=== PATIENT | female | born 1975 | race Caucasian/White ===

== ENCOUNTER 2025-01-31 08:44 | Outpatient (REF) | payer OTHER, SELFPAY ==
--- NOTE | ~2025-01-31 | XR_ITS ---
EXAMINATION: XR BILATERAL HIPS WITH AP PELVIS CLINICAL INFORMATION: M54.50 - Low back pain, unspecified COMPARISON: None available. TECHNIQUE: AP pelvis. AP and oblique views both hips. FINDINGS: No acute cortical disruption or malalignment. No lytic or blastic lesions. Mild sclerosis along the articular surface of the acetabulum. There is mild asymmetric joint space narrowing on the right side, right normal joint space in the left hip. Degenerative changes in the symphysis pubis. T-shaped contraceptive device overlapping the left lower sacrum. XR/XR hip BI w PEL1V IMPRESSION: Mild osteoarthrosis/osteoarthritis, both hips. EXAMINATION: XR LUMBOSACRAL SPINE WITH OBLIQUES CLINICAL INFORMATION: M54.50 - Low back pain, unspecified COMPARISON: None available. TECHNIQUE: AP and oblique views. Lateral views. FINDINGS: Marginal osteophyte formation and endplate sclerosis and decreased intervertebral disc height at L2-3. No acute cortical disruption or malalignment. Mild S-shaped curvature of the lower lumbar spine. No lytic or blastic lesions. Vascular clips right upper quadrant abdomen likely prior cholecystectomy. Sutures in the right lower abdomen probably related to appendectomy. T-shaped contraceptive device overlapping the left lower sacrum. IMPRESSION: Multilevel spondylosis pronounced at L2-3. Electronically signed by: Patrick Wallace MD 01/31/2025 10:24 AM EDT
--- NOTE | ~2025-01-31 | XR_ITS ---
EXAMINATION: XR BILATERAL HIPS WITH AP PELVIS CLINICAL INFORMATION: M54.50 - Low back pain, unspecified COMPARISON: None available. TECHNIQUE: AP pelvis. AP and oblique views both hips. FINDINGS: No acute cortical disruption or malalignment. No lytic or blastic lesions. Mild sclerosis along the articular surface of the acetabulum. There is mild asymmetric joint space narrowing on the right side, right normal joint space in the left hip. Degenerative changes in the symphysis pubis. T-shaped contraceptive device overlapping the left lower sacrum. XR/XR lumbar spine 4V min IMPRESSION: Mild osteoarthrosis/osteoarthritis, both hips. EXAMINATION: XR LUMBOSACRAL SPINE WITH OBLIQUES CLINICAL INFORMATION: M54.50 - Low back pain, unspecified COMPARISON: None available. TECHNIQUE: AP and oblique views. Lateral views. FINDINGS: Marginal osteophyte formation and endplate sclerosis and decreased intervertebral disc height at L2-3. No acute cortical disruption or malalignment. Mild S-shaped curvature of the lower lumbar spine. No lytic or blastic lesions. Vascular clips right upper quadrant abdomen likely prior cholecystectomy. Sutures in the right lower abdomen probably related to appendectomy. T-shaped contraceptive device overlapping the left lower sacrum. IMPRESSION: Multilevel spondylosis pronounced at L2-3. Electronically signed by: Patrick Wallace MD 01/31/2025 10:24 AM EDT
--- NOTE | ~2025-01-31 | XR_ITS ---
EXAMINATION: XR SHOULDER 2 OR MORE VIEWS RIGHT HISTORY: M25.511 - Pain in right shoulder COMPARISON: There are no prior studies available for comparison. FINDINGS: Four views of the right shoulder are submitted. Osseous mineralization is normal. There is no fracture or dislocation. The glenohumeral and acromioclavicular joint spaces are preserved. The soft tissues are unremarkable. XR/XR shoulder RT min 2V IMPRESSION: Unremarkable examination of the right shoulder. Electronically signed by: Shon Barreto MD 01/31/2025 10:20 AM EDT
== END 2025-01-31 08:45 | disposition home or self-care (01) ==
LOC: HO.XRAY 08:44
PROVIDERS: PCP Family Medicine; Referring Provider Family Medicine; Visit Provider Nurse Practitioner Family
DX: G89.29 Other chronic pain (principal); M54.50 Low back pain, unspecified; M47.817 Spondylosis without myelopathy or radiculopathy, lumbosacral region; M25.551 Pain in right hip; M25.552 Pain in left hip; M25.511 Pain in right shoulder; M16.11 Unilateral primary osteoarthritis, right hip
CPT/HCPCS: 72110; 73030; 73521

== ENCOUNTER 2025-01-31 08:44 | Outpatient (AMB) | payer OTHER, SELFPAY ==
--- NOTE | 2025-01-31 08:54 | MHC.OFFVIS ---
Vital Signs 01/31/25 09:01 Height 5 ft 6 in Weight 177 lb BMI 28.6 BP 151/81 H Blood Pressure Location Rt brachial Position Sitting Pulse 75 Pulse Source Pulse Oximeter Pulse Oximetry (%) 99 Intake Visit Reasons: Acute Pain of Right Shoulder Intake Note: Pain today 10/18 Box Feeder Required: No Accompanied by: Self / Same As Patient Allergies hydromorphone (From Dilaudid) Allergy (Unknown, Verified 01/31/25 09:00) Rash HPI Comments Details: The patient is a 49-year-old female presenting with chronic low back pain and acute on chronic right shoulder pain. The right shoulder pain has been present for approximately six years and has recently worsened. The pain is described as sharp, boring, tender, and hot with movements, and it is exacerbated by weather changes and physical activity. The patient attributes her shoulder pain to rheumatoid arthritis and rotator cuff issues. She has undergone physical therapy in the past with partial improvement and has received cortisone injections that provided brief relief. She has also tried chiropractic manipulation, massage therapy, and TENS unit with minimal relief. The patient also reports chronic low back and hip pain, which she rates as 8/10 in severity and more severe than right shoulder pain. The pain is described as throbbing, pounding, pulsing, shooting, flashing, stabbing, sharp, tingling, burning, tugging, pulling, pinching, cramping, sore, hurting, and aching. It radiates from the lower back to the right buttock, lateral hip, groin, and down the side of the right leg, impacting the knee but not below. The patient has a history of Crohn's disease and has a stoma. She smokes half a pack of cigarettes a day, uses alcohol about three times a month, and consumes marijuana edibles twice a month. She is currently taking oxycodone 10 mg every 4 hours as needed for pain management prescribed by her PCP. The patient has a history of depression and sees her PCP for management. She has experienced significant life stressors, including the recent loss of her and twin grandbaby. - Onset: Chronic low back pain and right shoulder pain present for 6 years, recently exacerbated - Quality: Throbbing, pounding, pulsing, shooting, flashing, stabbing, sharp, tingling, burning, tugging, pulling, pinching, cramping, sore and hurting - Location: Right shoulder, back pain radiating to right buttock, lateral hip, groin, and side of right leg - Exacerbating factors: Movement, weather changes, prolonged sitting or standing, walking - Relieving factors: Pressure, gentle stretching, oxycodone, heat - Interference: Affects daily activities, functioning, and sleep - Affect: Pain impacts daily activities and sleep, contributing to depression - Analgesia: Oxycodone 10 mg every 4 hours as needed, pain rated 7/10 in shoulder, 8/10 in back and hips - Adverse Effects: None reported - Activities of Daily Living: Pain affects work and daily functioning, patient works three jobs and remains active - Aberrant Drug Related Behaviors: None reported [facility] Medical History (Updated 01/31/25 @ 12:43 by LCAIRE Pressley) Chronic pain Crohn's disease Hernia due to colostomy Perimenopausal Rheumatoid arthritis Back pain Social History Alcohol intake: current Alcohol intake frequency: a few times a month Patient Tobacco Use Status: Current everyday Tobacco user Tobacco use type: Cigarette Cigarette Packs Per Day: 1 Substance Use Type: Other Review of Systems Const Details: - Musculoskeletal: Reports right shoulder pain, chronic low back and hip pain - Neurological: Reports numbness in toes, denies radiating pain below knee level - Gastrointestinal: Reports history of Crohn's disease, presence of stoma - Psychiatric: Reports depression, significant life stressors All systems reviewed & are unremarkable except as noted in HPI and below Physical Exam Vital Signs: Last Vital Signs Pulse 75 01/31/25 09:01 BP 151/81 H 01/31/25 09:01 Pulse Ox 99 01/31/25 09:01 BMI result Body Mass Index 28.6 General: Appears afebrile. Alert and oriented. Mood and affect appropriate. Follows and participates in conversation appropriately. Respiratory effort is unlabored. No cough. Able to transition from sit to stand unassisted. Ambulates with bilaterally normal heel strike and toe off, increased low back pain standing on heels, R>L GI Inspection: Yes other (Colostomy present) Palpation (GI): Soft to palpation, nontender and no guarding General: Yes no CVA tenderness Back/Spine/Pelvis Other: Limited lumbar ROM due to pain. Lumbar extension than axial rotations reproduce moderate pain. Lumbar flexion and bending forward reproduces [id number] pain. Positive painful facet loading bilaterally, right worse than the left. No midline TTP in cervical, thoracic or lumbar spine. Demonstrates 5/5 strength of quadriceps bilaterally as well as flexion/dorsiflexion of bilateral feet against resistance. 2+ pedal pulses bilaterally. Straight leg rise with dorsiflexion negative bilaterally. +2 left +1 right patellar and achilles reflexes bilaterally. Celeste sign, Ankit?s, Gaenslen, Pelvic compression and Stinchfield tests are positive on the right. Mild right groin pain with I/E hip rotations on the right. Mild to moderate TTP bilateral GTB. Valsalva maneuver negative. Back: no CVA tenderness Cervical Spine: cervical ROM normal, cervical muscular tenderness, No Cervical spine scars present and No Cervical spine tenderness Thoracic/Lumbar Spine: thoracic and lumbar spine normal to inspection, No Thoracic/lumbar spine scar(s), Lasegue's sign negative, straight leg raise negative bilaterally, pain with thoraco-lumbar ROM, thoraco-lumbar ROM limited, No thoracic spinal tenderness and No lumbar spinal tenderness Sacroiliac joints: on the right tender to palpation and on the left nontender Extrem General: Yes capillary refill normal, Yes no clubbing, cyanosis or edema and Yes no calf tenderness Results Reviewed Results Reviewed: XR BILATERAL HIPS WITH AP PELVIS 01/31/25 CLINICAL INFORMATION: M54.50 - Low back pain, unspecified COMPARISON: None available. TECHNIQUE: AP pelvis. AP and oblique views both hips. FINDINGS: No acute cortical disruption or malalignment. No lytic or blastic lesions. Mild sclerosis along the articular surface of the acetabulum. There is mild asymmetric joint space narrowing on the right side, right normal joint space in the left hip. Degenerative changes in the symphysis pubis. T-shaped contraceptive device overlapping the left lower sacrum. IMPRESSION: Mild osteoarthrosis/osteoarthritis, both hips. XR LUMBOSACRAL SPINE WITH OBLIQUES CLINICAL INFORMATION: M54.50 - Low back pain, unspecified COMPARISON: None available. TECHNIQUE: AP and oblique views. Lateral views. FINDINGS: Marginal osteophyte formation and endplate sclerosis and decreased intervertebral disc height at L2-3. No acute cortical disruption or malalignment. Mild S-shaped curvature of the lower lumbar spine. No lytic or blastic lesions. Vascular clips right upper quadrant abdomen likely prior cholecystectomy. Sutures in the right lower abdomen probably related to appendectomy. T-shaped contraceptive device overlapping the left lower sacrum. IMPRESSION: Multilevel spondylosis pronounced at L2-3. ADDENDUM #1 There is a round radiopaque structure in the left lower abdomen and overlapping the left iliac crest concerning for an ostomy. XR SHOULDER 2 OR MORE VIEWS RIGHT 01/31/25 HISTORY: M25.511 - Pain in right shoulder COMPARISON: There are no prior studies available for comparison. FINDINGS: Four views of the right shoulder are submitted. Osseous mineralization is normal. There is no fracture or dislocation. The glenohumeral and acromioclavicular joint spaces are preserved. The soft tissues are unremarkable. IMPRESSION: Unremarkable examination of the right shoulder. Assessment & Plan Assessment & Plan (1) Bilateral hip pain: Code(s): M25.551 - Pain in right hip; M25.552 - Pain in left hip Category: Medical (2) Chronic low back pain: Code(s): M54.50 - Low back pain, unspecified; G89.29 - Other chronic pain Category: Medical (3) Lumbosacral spondylosis: Code(s): M47.817 - Spondylosis without myelopathy or radiculopathy, lumbosacral region Category: Medical (4) Right shoulder pain: Code(s): M25.511 - Pain in right shoulder Category: Medical (5) Osteoarthritis of right hip: Code(s): M16.11 - Unilateral primary osteoarthritis, right hip Category: Medical Plan The plan includes addressing the patient's chronic pain through a combination of interventions and lifestyle modifications. Given the history of rheumatoid arthritis, spine and joint arthritis and rotator cuff issues, further imaging studies such as x-rays are recommended to assess the extent of joint involvement and guide treatment. Xray studies were completed after today's visit and patient was called with results. Physical therapy was previously attempted it with limited success. For pain management, options such as therapeutic SI joint and hip injections, radiofrequency ablation and peripheral nerve stimulation are discussed as potential treatments to provide longer-term relief. We also discussed longer term neuromodulation such as ITDD trial vs implant, which will require cessation of opioids 24 hours for trial and 60 days for implant. Lifestyle modifications, including avoiding pro-inflammatory foods, are recommended to help manage symptoms of Crohn's disease and arthritis. Schedule Bilateral Diagnostic L2-L3-L4 MBB with local and fluoroscopy for potential Sprint PNS trial for axial low back pain. Expectations, risks and benefits were reviewed. Patient is aware she will be contacted to schedule this procedure. All questions and concerns have been answered and patient agreed with the treatment plan. Follow up after injections and sooner as needed. Patient was informed and verbally consented to the use of an ambient scribe for clinic note documentation during this visit. Orders: Orders XR lumbar spine 4V min Today G89.29 - Other chronic pain, M47.817 - Spondylosis without myelopathy or radiculopathy, lumbosacral region, M54.50 - Low back pain, unspecified XR hip BI w PEL1V Today M25.551 - Pain in right hip, M25.552 - Pain in left hip XR shoulder RT min 2V Today M25.511 - Pain in right shoulder Coding Level of Care Code New Pt Level 4 (06862) Diagnoses Bilateral hip pain M25.551; M25.552 Chronic low back pain M54.50; G89.29 Lumbosacral spondylosis M47.817 Right shoulder pain M25.511 Osteoarthritis of right hip M16.11
[2025-01-31 09:01] VITALS: BP 151/81; PULSE 75; O2SAT 99; BMI 28.6
--- OUTSIDE RECORDS SUMMARY | 2025-01-31 09:24 | XMS_ITS | Encounter Summary ---
Author Organization [facility] Address [address] [place] [address] Phone Care Team Providers Care Assistant Toddler Teacher Name Role Phone Shon Bauer MD Unavailable [phone] Zena Hill DO Unavailable [phone] Vidhya Casey MD Unavailable [phone] Ayaan Bauer MD Unavailable [phone] Juan Carlos Cano MD Primary Care Provider [phone] Encounter Details Date Type Department Care Team (Late st Contact Info) Description 04/05/2023 Procedure Pass [facility] Admitting Dept Virtual Department [address] [place] [address] Social History Tobacco Use Types Packs/Day Years Used Date Smoking Tobacco: Every Day Cigarettes 0.5 25 Smokeless Tobacco: Never Comments:10 cig daily Alcohol Use Standard Drinks/Week Comments Not Currently 0 (1 standard drink = 0.6 oz pur e alcohol) Child or Family Care Answer Date Record ed Do you have problems with on e of the following making it difficult for you to work, study, or receive health care? No 08/29/2020 Education Answer Date Recorded Are you interested in more education? Not on umer e 09/01/2022 Are you concerned about learning? Not on file 09/01/2022 No 09/01/2022 No 09/01/2022 Food Answer Date Recorded Within the past 6 months we worried whether our food would run out before we got money to buy more. Never True 08/29/2020 Within the past 6 months the food we bought just didn't last and we didn't have enough money to get more. Never True Paying for Meds Answer Date Recorded Do you have trouble paying for medicines? No 08/29/2020 Paying Utility Bills Answer Date Record ed Do you have trouble paying your heating or elect ricity bill? No 08/29/2020 Transportation Answer Date Recorded Has the lack of transportati on kept you from medical appointments or from getting medications? No 08/29/2020 Unemployment Answer Date Recorded Are you currently unemployed or working on a part-time or temporary basis, and looking for work? No 08/29/2020 Digital Access Answer Date Recorded No 09/01/2022 No 09/01/2022 Reliable internet access at home? Not on file 09/01/2022 Device with a working camera? Not on file Comments No Sex and Gender Information Value Date Recorded Sex Assigned at Female 07/04/2021 9:02 PM EDT Legal Sex Female 8:11 PM EST Gender Identity Female 07/04/2021 9:02 PM EDT Sexual Orientation Not on file documented as of this encounter Plan of Treatment Upcoming Encounters Date Type Department Care Team (Late st Contact Info) Description 08/27/2024 Procedure Pass [address] [place] [address] 02/26/2025 10:00 AM EST Office Visit [address] [address] Juan Carlos Cano MD [address] [place] [address] [place] [address] 03/04/2025 7:30 AM EST Appointment [address] [place] [address] Juan Carlos Cano MD [address] [place] [address] [place] [address] 03/15/2025 1:30 PM EST Infusion [facility] [address] [place] [address] Momo Lemon MD [address] [address] [email or web address] 05/10/2025 1:30 PM EST Infusion [facility]fusion [address] [address] Momo Lemon MD [address] [address] 07/05/2025 1:30 PM EDT Infusion [facility] [address] [address] Momo Lemon MD [address] [place] [address] [email or web address] documented as of this encounter Visit Diagnoses Not on filedocumented in this encounter Additional Health Concerns Infection Onset Date Last Indicated Resolved Time CoV-Exposed Comment:Recent close contact documented in the Travel/Symptom Screening Form 03/25/2023 03/31/2023 04/05/2023 1:[address] Assessment Noted Time PHQ-2 Depression Total Score: 1 07/28/19 8:52 AM EDT documented as of this encounter Care Teams Assistant Toddler Teacher Relationship Specialty Start Date End Date Juan Carlos Cano MD [address] [place] [address] 7 [place] [address] [email or web address] PCP - General Family Medicine 11/12/22 Shon Bauer MD [address] [place], [place] [address] [address] [email or web address] Historical LMR Provider 01/29/17 Zena Hill DO [address] [place] [address] [address] [place] [address] [email or web address] Historical LMR Provider 01/29/17 Vidhya Casey MD [address] [place] [address] [address] [place] [address] [email or web address] Historical LMR Provider 01/29/17 Ayaan Bauer MD [address] [place] [address] [address] [place] [id number] [email or web address] Historical LMR Provider 01/29/17 documented as of this encounter Additional Source Comments The information contained in this document represents components of the legal health record. It is not the complete legal health record.[facility]
--- OUTSIDE RECORDS SUMMARY | 2025-01-31 09:25 | XMS_ITS | Encounter Summary ---
Author Organization [facility] Address [address] [place] [address] Phone Care Team Providers Care Mutton Puncher Name Role Phone Shon Bauer MD Unavailable [phone] Zena iHll DO Unavailable [phone] Vidhya Casey MD Unavailable [phone] Ayaan Bauer MD Unavailable [phone] Shon Bauer MD Primary Care Provider Juan Carlos Cano MD Primary Care Provider [phone] Juan Carlos Cano MD Primary Care Provider [phone] Encounter Details Date Type Department Care Team (Late st Contact Info) Description 07/04/2021 Procedure Pass [facility] Scan - [address] [address] Social History Tobacco Use Types Packs/Day Years Used Date Smoking Tobacco: Every Day Cigarettes Smokeless Tobacco: Never Comments:5 gabrielle Alcohol Use Standard Drinks/Week Comments Not Currently 0 (1 standard drink = 0.6 oz pur e alcohol) Child or Family Care Answer Date Record ed Do you have problems with on e of the following making it difficult for you to work, study, or receive health care? No 08/29/2020 Education Answer Date Recorded Are you interested in help w ith more adult education (for example, completing high school, GED, job training, learning the [place] language, technical skills, or developing parenting skills)? No 08/29/2020 Food Answer Date Recorded Within the past [...] basis, and looking for work? No 08/29/2020 Comments No Sex and Gender Information Value Date Recorded Sex Assigned at Female 07/04/2021 9:02 PM EDT Legal Sex Female 8:11 PM EST Gender Identity Female 07/04/2021 9:02 PM EDT Sexual Orientation Not on file documented as of this encounter Functional Status * Calculated C-SSRS Risk Score (Lifetime/Recent) Answer Date of Assessment Author No Risk Indicated 07/04/2021 9:01 PM EDT Myla Campa CNP * [place] Suicide Severity Rating Scale (Screener/Recent Self-Report) Question Answer Date of Assessment Author 1. Wish to be (Past 1 Month) No 07/04/2021 9:01 PM EDT Myla Campa CNP 2. Non-Specific Active Suicidal Thoughts (Past 1 Month) No 07/04/2021 9:01 PM EDT Myla Campa CNP 6. Suicidal Behavior (Lifetime) No 07/04/2021 9:01 PM EDT Myla Campa CNP documented as of this encounter Plan of Treatment Upcoming Encounters Date Type Department Care Team (Late st Contact Info) Description 08/27/2024 Procedure Pass [facility] - [address] [place] [address] 02/26/2025 10:00 AM EST [facility] [address] [facility] [address] Juan Carlos Cano MD [address] [facility], [address] [place] [address] 03/04/2025 7:30 AM EST Appointment [address] [place] [address] Juan Carlos Cano MD [address] [facility], [facility] [address] [place] [address] 03/15/2025 1:30 PM EST Infusion [facility] [address] [address] Momo [place] MD [address] [place] [address] 05/10/2025 1:30 PM EST Infusion [facility] [address] [address] Momo Lemon MD [address] [place] [address] 07/05/2025 1:30 PM EDT Infusion [facility] [address] [address] Momo Lemon MD [address] [place] [address] documented as of this encounter Visit Diagnoses Not on filedocumented in this encounter Additional Health Concerns Infection Onset Date Last Indicated Resolved Time CoV-Exposed Comment:Recent close contact documented in the Travel/Symptom Screening Form 03/25/2023 03/31/2023 04/05/2023 1:[address] documented as of this encounter Care Teams Mutton Puncher Relationship Specialty Start Date End Date Shon Bauer MD [address] [place] [address] [address] [place] [phone] [email or web address] PCP - General 02/15/17 04/18/22 Juan Carlos Cano MD [address] [place] [address], [address] [place] [address] [email or web address] PCP - General Family Medicine 04/19/22 11/11/22 Juan Carlos Cano MD [address] [place] [address], [address] [place] [address] [email or web address] PCP - General Family Medicine 11/12/22 Shon Bauer MD [address] [place] [address] [address] [place] [phone] [email or web address] Historical LMR Provider 01/29/17 Zena Hill DO [address] [place] [address], [facility] [address] [place] [address] [email or web address] Historical LMR Provider 01/29/17 Vidhya Casey MD [address] [place] [address], [address] [place] [address] [email or web address] Historical LMR Provider 01/29/17 Ayaan Bauer MD [address] [place] [address] [address] [place] [phone] [email or web address] Historical LMR Provider 01/29/17 documented as of this encounter Additional Source Comments The information contained in this document represents components of the legal health record. It is not the complete legal health record.[facility]
--- OUTSIDE RECORDS SUMMARY | 2025-01-31 09:25 | XMS_ITS | Clinical Summary ---
Author Organization [facility] Address [address] [facility] [address] [place] [phone] Phone Care Team Providers Care Order Entry Technician Name Role Phone Shon Bauer MD Unavailable Zena Hill DO Unavailable [phone] Vidhya Casey MD Unavailable [phone] Ayaan Bauer MD Unavailable [phone] Juan Carlos Cano MD Primary Care Provider Allergies Active Allergy Reactions Criticality Noted Date Comments Hydromorphone 06/11/2021 Other reaction(s): itching Hydromorphone (Bulk) Itching,Swelling 7 Kiwi (Actinidia Chinensis) 03/25/2017 Latex 06/11/2021 Other reaction(s): RASH Latex, Natural Rubber Itching,Swelling 03/25/20 17 Metronidazole 06/11/2021 Other reaction(s): swelling feet and ankles itching Pineapple Swelling,Throat Tightness Medium 03/11/2021 Medications cyanocobalamin (VIT B-12) 1000 MCG tabletIndicatio ns:prevention of vitamin B12 deficiency Take 100 mcg by mouth daily. Indications: Prevention of Vitamin B12 Deficiency Active cholecalciferol (VITAMIN D3) 1,000 unit tabletIndicatio ns:osteoporosis Take 1,000 Units by mouth daily. Indications: Osteoporosis Active potassium chloride (MICRO-K) 8 mEq CR capsule Take 8 mEq by mouth daily. Active simethicone 125 mg Cap Take 125 mg by mouth daily. Active biotin 1 mg tablet Take 1,000 mcg by mouth daily. Active mercaptopurine (PURINETHOL) 50 mg tablet Take 150 mg by mouth daily. 2 01/06/20 18 Active cetirizine (ZYRTEC) 10 MG tablet Take 10 mg by mouth 2 (two) times a day. Active ENTYVIO 300 mg SolR injection Inject into the vein once every 8 weeks. 12/05/19 21 Active montelukast (SINGULAIR) 10 mg tablet Take 10 mg by mouth nightly at bedtime. 08/23/19 22 Active famotidine (PEPCID) 20 MG tabletIndicatio ns:Crohn's disease 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 Take 1 tablet (20 mg total) by mouth 2 (two) times a day. Take 20 mg by mouth 2 (two) times a day. 180 tablet 3 01/15/20 23 Active XOLAIR 300 mg/2 mL AtIn 10/10/19 24 Active EPINEPHrine 0.3 mg/0.3 mL auto-injector INJECT CONTENTS OF 1 PEN NEEDED FOR ALLERGIC REACTION THEN CALL 911 08/12/19 24 Active traZODone (DESYREL) 100 MG tabletIndicatio ns:Primary insomnia Take 1 tablet (100 mg total) by mouth nightly at bedtime. 30 tablet 5 06/04/19 25 Active albuterol 90 mcg/actuation inhalerIndicati ons:Shortness of breath Inhale 2 puffs into the lungs every 6 (six) hours as needed for wheezing or shortness of breath/dyspnea. 18 g 3 08/22/19 25 Active DULoxetine (CYMBALTA) 60 MG capsuleIndicati ons:Rheumatoid arthritis, involving unspecified site, unspecified whether rheumatoid factor present,Depress ion with anxiety Take 1 capsule (60 mg total) by mouth 2 (two) times a day. 180 capsule 3 10/20/19 25 Active oxyCODONE HCl 10 mg TabIndications: Rheumatoid arthritis, involving unspecified site, unspecified whether rheumatoid factor present Take 1 tablet (10 mg total) by mouth every 4 (four) hours as needed (pain in joints). Max 5 tablets/24 hours. No more than 140 tablets in 28 days. 140 tablet 01/11/20 25 025 Active oxyCODONE HCl 10 mg TabIndications: Rheumatoid arthritis, involving unspecified site, unspecified whether rheumatoid factor present Take 1 tablet (10 mg total) by mouth every 4 (four) hours as needed (pain in joints). Max 5 tablets/24 hours. No more than 140 tablets in 28 days. 140 tablet 12/14/19 25 025 Discontin ued([facility]) Hospital, Clinic, or Other Facility Administered Medication Ordered Dose Route Frequency Start Date End Date Status levonorgestreL (MIRENA) 20 mcg/24 hours (6 yrs) 52 mg intrauterine device 1 each 1 each Utrn Every 5 years 09/29/2020 Active Active Problems Problem Noted Date Diagnosed Date Ventral hernia without obstruction or gangrene 0 08/28/2024 Primary insomnia 08/29/2023 Assessment & Plan (08/29/2023 5:40 AM EDT): I will start the patient on trazodone 50 mg daily to see if that helps her get some sleep. Depression with anxiety 08/29/2023 Assessment & Plan (01/30/2024 12:19 PM EDT): Byron presents for follow-up regarding depression and anxiety. Her recently . She also notes that she lost to twin grandchildren recently. She has been going through a lot recently. She feels well supported. She does have the supports in place. She stopped taking the gabapentin as she notes that it makes her feel strange. She would like to stay motivated and this medication makes her unmotivated. Her vital signs are stable. She denies any SI or HI. I gave support. I informed her to follow-up with PCP in 3 to 4 weeks. I informed her to call earlier if needed. She understands and agrees with this plan of action. Assessment & Plan (08/29/2023 5:41 AM EDT): Patient is complaining of increased pain along with depression and anxiety due to her home situation. I will be adjusting current dose of Cymbalta to see if it will help with both her depression and pain symptoms. Other chronic pain 01/14/2023 Assessment & Plan (04/18/2023 10:16 AM EST): Patient is managing her pain with oxycodone 10 mg tablets of which she is taking 5 pills a day. There are days where she does not need to take all 5 pills throughout the day but there are other days when she has been doing physical work where she may need to take more. Patient has not needed to fill the prescription early which is encouraging as her pain was not well-controlled in the past. Assessment & Plan (03/21/2023 1:36 AM EST): Patient has been taking oxycodone for chronic pain. I will increase the medication from 4 tablets a day to 5 tablets a day. I will recheck with her in 3 months to see how the new dose is doing. COVID-19 virus infection 05/06/2022 Assessment & Plan (05/06/2022 2:24 PM EST): Virtual Visit Attestation Modality: video Provider Location: practice location Patient Location: home Patient State: [place] tested positive for COVID this past Tuesday. She has mild to moderate symptoms- she is a candidate for paxlovid. She is interested in the medication for treatment thus I prescribed this today-I reviewed side effects. I also gave guidance regarding symptomatic management and to call if things get worse or if there are any other issues or concerns. I gave guidance regarding quarantining. She understands and agrees. Food allergy 03/13/2021 Assessment & Plan (03/13/2021 10:35 AM EST): It does seem that she is reacting at least two pineapple but she thinks other foods may be involved. Referral to allergy. Pelvic pain 2021 Overview (2021): X 2 weeks, alternating between RLQ and LLQ, Not her typical sxs of Crohn's Assessment & Plan (2021 7:58 PM EST): H/o cysts; may have adhesions related to Crohn's Recommend u/s Rheumatoid arthritis 01/24/2019 Assessment & Plan (08/29/2023 5:39 AM EDT): Patient is being prescribed oxycodone 10 mg tablets that she can take up to 5 a day. Patient states that the medication helps her get through the day especially if she is taking on more responsibilities due to her 's sickness. Assessment & Plan (03/21/2023 1:34 AM EST): Patient has history of rheumatoid arthritis for which she has needed increased amount of pain medication over the past 6 months. I had increased her dose from 3 a day to 4 a day in September of this year. Now it appears the patient has a higher pain requirement so I will increase it to 5 tablets a day with the hopes that it is enough to keep the patient functional as she is taking care of many responsibilities at home. Assessment & Plan (09/20/2022 3:49 PM EDT): Patient asked to decrease the duration of time in between her doses of pain medication. I have changed the directions on the prescription so that she can take 1 tablet every 6 hours rather than every 8 hours as needed for pain. Assessment & Plan (07/27/2022 5:11 PM EDT): Reviewed I would refer her question regarding potentially increasing the oxycodone dosage to her PCP - usually we would not increase by fully 20 mg per day but potentially increase from QID to 5 per day for example, she expressed understanding. Assessment & Plan (05/03/2022 12:56 AM EST): Continue current medications for pain. She is in the process of finding a new chemistry technician Assessment & Plan (09/11/2021 1:36 PM EDT): Byron states that the increase stress has triggered increased pain and she is used more oxycodone. She knows that this is not acceptable but she is out and I do not want her to go into withdrawal. I did agree to try to get this refilled a week early but she will also start Cymbalta starting at 30 mg once a day increasing to 60 mg/day and also referral is sent into pain medicine. She agrees to this. Assessment & Plan (06/17/2021 1:56 PM EST): Shun has a lot of pain and did not feel that the local chemistry technician was able to help. We did review that [facility] may be a reasonable option. She is hoping to get into a GI study through [facility] and will check with the autocad electrical designer about finding a chemistry technician locally there. We did review the oxycodone use. She really does feel that the 5 mg 4 times daily allows her to ambulate and be more productive. She has not changed her dosing in years and really feels this is helpful. Assessment & Plan (03/13/2021 10:34 AM EST): Continue current medications. She is counseled regarding oxycodone use. She has been using this consistently and appropriately for a while. Encouraged to use as little as necessary to maintain function. Colostomy present 01/24/2019 Assessment & Plan (04/18/2023 10:17 AM EST): Patient does have a colostomy present on the left side of her abdomen. She was supposed to have a colonoscopy but was given the incorrect prep for her to have a scope put in the site of the ostomy. She will need to reschedule her colonoscopy but she is complaining of pain along the site due to a hernia located above the ostomy site. She will need to speak to her surgeon regarding future plans as the colostomy was supposed to be temporary. Assessment & Plan (09/20/2022 3:51 PM EDT): Patient has a colostomy present which is patent and draining the contents of her intestines. There is some mild irritation along the ostomy site due to adhesive used for fastening the colostomy bag. No sign of skin breakdown to the point of needing antibiotics at this time. Assessment & Plan (05/03/2022 12:59 AM EST): No concerns with the ostomy at this time. There is no leakage or blood seen coming from the opening. IUD (intrauterine device) in place 01/24/2019 Overview (09/29/2020): Mirena September 2020 Crohn's disease of both smal l and large intestine with fistula 12/21/2017 Assessment & Plan (03/21/2023 1:35 AM EST): Patient has history of Crohn's disease but denies any current complications. She does have a colostomy and reports no complications such as blood with the discharge. Assessment & Plan (05/03/2022 12:57 AM EST): Patient is managing okay with her Crohn's disease. She does have a colostomy and it is working well. She follows up with GI as needed. Assessment & Plan (06/17/2021 1:57 PM EST): She is on Entyvio and although it helps her GI symptoms, she does not have any anti-inflammatory improvement and her RA symptoms are worse. She will try to find a new chemistry technician. Goiter 03/25/2017 Tobacco use 03/25/2017 Assessment & Plan (09/20/2022 3:50 PM EDT): Patient has had a stressful few months and has increased her smoking as a result. Advised patient to try cutting down as much as possible. She is not interested in taking any medications to help her quit at this time. Assessment & Plan (05/03/2022 12:58 AM EST): Patient encouraged to quit smoking or at least cut down as much as possible. She knows that she needs to quit and is working hard to try to cut down is much as possible Assessment & Plan (09/11/2021 1:36 PM EDT): Byron states that increase stress has triggered an uptick in her cigarettes to about a pack per day. She was down to 4 or 5/day. I did encourage trying once again. Assessment & Plan (06/17/2021 1:57 PM EST): Byron is smoking more than she had but still less than 10 cigarettes daily. I once again encouraged complete smoke cessation. Assessment & Plan (03/13/2021 10:35 AM EST): Encouraged to continue working on smoking cessation. It has been 1 week and hopefully it will continue. Assessment & Plan (05/26/2020 8:45 AM EST): On Chantix now. Resolved Problems Problem Noted Date Diagnosed Date Resolved Date Accidental fall 09/29/2017 05/26/2020 Assessment & Plan (09/29/2017 8:39 AM EDT): Byron had an accidental fall this past Tuesday, no head truama or loss of consciousness. She was advised to be careful and to treat her aches and pains with RICE therapy. She understands and agrees. Acute pain of left shoulder 09/29/2017 05/26/2020 Assessment & Plan (09/29/2017 8:34 AM EDT): Byron has left shoulder pain after a recent fall this past Tuesday. She was advised to go for the above image study and I will update her with the results. She was also advised of RICE therapy and to go for physical therapy if there is no issues with the image study. She will call if this does not improve over the next 2-3 weeks. She understands and agrees. Sprain of anterior talofibul ar ligament of left ankle 09/29/2017 05/26/2020 Assessment & Plan (09/29/2017 8:44 AM EDT): Byron has a left ankle sprain and she was advised to continue with her RICE therapy. She will call if this gets worse. Right wrist pain 09/29/2017 05/26/2020 Assessment & Plan (09/29/2017 8:44 AM EDT): Byron has a right wrist sprain and she was advised to continue with her RICE therapy. She will call if this gets worse. Crohn disease 03/25/2017 05/26/2020 Encounters Date Type Department Care Team Description 01/18/2025 1:30 PM EDT Infusion [facility] [address] [place] [id number] Lucia Lemon MD Crohn's disease 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 (Primary Dx) 01/17/[address] [address] Suly Payton RN 12/29/2024 8:04 AM EDT - 12/29/2024 11:59 PM EDT Hospital Encounter [facility] [address] [place] [phone] Juan Carlos Cano MD Discharge Disposition: Home or Self Care 12/28/2024 4:30 PM EDT Office Visit [facility] [address] [place] [address] [place] [phone] Kristy Gastelum MD Encounter for gynecological examination without abnormal finding (Primary Dx); Perimenopause 11/27/2024 10:00 AM EDT Office Visit [address] [address] Juan Carlos Cano MD Other chronic pain (Primary Dx); Screening for condition; Rheumatoid arthritis, involving unspecified site, unspecified whether rheumatoid factor present; Crohn's disease 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; Acute pain of right shoulder; Ventral hernia without obstruction or gangrene 11/23/2024 1:30 PM EDT Infusion [address] [address] Lucia Lemon MD Crohn's disease 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 (Primary Dx) 11/16/2024 Orders Only [address] [address] Lucia Lemon MD 11/16/2024 Orders Only Virtual Department [address] [place] [id number] Lucia Lemon MD Crohn's disease with complication, unspecified gastrointestinal tract location (Primary Dx) from Last 3 Months Immunizations Immunization Administration Dates Next Due COVID-19 (Pre-01/31) Pfizer Vaccine, mRNA, PF 07/29/2020,07/07/2020 INFLUENZA, SPLIT VIRUS, TRIVALENT PF 01/27/2024 INFLUENZA, SPLIT VIRUS, TRIV ALENT W/ PRESERVATIVE IM 06/30/2011 Influenza Quadrivalent Preservative Free IM 11/2023,03/13/2021,01/17/2017 Influenza Quadrivalent w/ Preservative IM 2015,02/26/2015 Influenza Recombinant Cornelius valent Preservative Free IM 01/13/2020,01/24/2019 Influenza, Unspecified Formulation 01/13/2020, Pneumococcal conjugate PCV20 07/27/2022 Pneumococcal polysaccharide PPSV23 01/25/2019,,08/05/2008 Td (adult),2 Lf Tetanus Toxo id, PF, Adsorbed 11/28/2019 Td, unspecified formulation 08/19/2004 Family History Medical History Relation Comments No Known Problems Brother No Known Problems Father No Known Problems Maternal Aunt No Known Problems Maternal Grandfather No Known Problems Maternal Grandmother No Known Problems Maternal Uncle Arthritis Mother Osteoarthritis Mother Ovarian cancer Mother No Known Problems Paternal Aunt No Known Problems Paternal Grandfather Diabetes Paternal Grandmother No Known Problems Paternal Uncle No Known Problems Sister Clotting disorder Neg Hx Collagen disease Neg Hx Depression Neg Hx Dislocations Neg Hx Gout Neg Hx Infl. arthritis Neg Hx Osteoporosis Neg Hx Scoliosis Neg Hx Relation Status Comments Brother Father Maternal Aunt Maternal Grandfather Maternal Grandmother Maternal Uncle Mother Paternal Aunt Paternal Grandfather Paternal Grandmother Paternal Uncle Sister Social History Tobacco Use Types Packs/Day Years Used Date Smoking Tobacco: Every Day Cigarettes 0.5 25 Smokeless Tobacco: Never Tobacco Cessation:Ready to Q uit: Not Asked; Counseling Given: Not Answered Comments:10 cig daily Alcohol Use Standard Drinks/Week [...] with a working camera? Not on file Intimate Partner Violence Answer Date R ecorded Are you denied basic needs s uch as food, clothing, or medical care? No 07/11/2023 In the past 12 months have y ou been in a relationship with a person who hurts, threatens, or tries to control you? No 07/11/2023 Are you denied basic needs s uch as food, clothing, or medical care? No 07/11/2023 In the past 12 months have y ou been in a relationship with a person who hurts, threatens, or tries to control you? No 07/11/2023 Comments No Sex and Gender Information Value Date Recorded Sex Assigned at Female 07/04/2021 9:02 PM EDT Legal Sex Female 8:11 PM EST Gender Identity Female 07/04/2021 9:02 PM EDT Sexual Orientation Not on file Last Filed Vital Signs Vital Sign Reading Time Taken Comments Blood Pressure 122/79 01/18/2025 2:53 PM EDT Pulse 62 01/18/2025 2:00 PM EDT Temperature 36.7 C (98.1 F) 01/18/2025 2:53 PM EDT Respiratory Rate 18 01/18/2025 2:53 PM EDT Oxygen Saturation 98% 01/18/2025 2:53 PM EDT Inhaled Oxygen Concentration - - Weight 81.6 kg (180 lb) 12/28/2024 4:24 PM EDT Height 167.6 cm (5' 5.98 ) 12/28/2024 4:24 PM ED T Body Mass Index 29.07 12/28/2024 4:24 PM EDT Plan of Treatment Upcoming Encounters Date Type Department Care Team (Late st Contact Info) Description 08/27/2024 Procedure Pass [address] [place] [address] 02/26/2025 10:00 AM EST Office Visit [facility] [address] [place] [address] Juan Carlos Cano MD [address] [facility], [address] [place] [address] 03/04/2025 7:30 AM EST Appointment [address] [place] [address] Juan Carlos Cano MD [address] [facility] [address] [place] [address] 03/15/2025 1:30 PM EST Infusion [facility] [address] [place] [phone] Lucia Lemon MD [address] [place] [address] 05/10/2025 1:30 PM EST Infusion [facility] [address] [address] Lucia Lemon MD [address] [place] [phone] 07/05/2025 1:30 PM EDT Infusion [facility] [address] [address] Lucia Lemon MD [address] [place] [phone] [email or web address] Health Maintenance Due Date Last Done Comments COLOGUARD 2022 FIT TEST 2022 FOBT 2022 SIGMOIDOSCOPY 2022 VIRTUAL COLONOSCOPY 2022 MAMMOGRAM 08/17/2024 08/17/2022, 06/16/2020 INFLUENZA VACCINE (#1) 2024 , 04/18/2023, 03/13/2021, Additional history exists COVID-19 VACCINE (2024- season) 2024 03/30/2021, 07/29/2020, 07/07/2020 DEPRESSION SCREENING 05/29/2025 05/29/2024, 05/29/19 25 SMOKING Hx and SMOKELESS TOBACCO SCREENING 12/28/2025 12/28/2024 POTASSIUM LEVEL 12/29/2025 12/29/2024, 05/2021, 07/04/2021, Additional history exists PAP SMEAR 12/29/2027 12/28/2024, 05/12, 09/17/2010 SCREENING FOR DIABETES 12/30/2027 12/29/2024 IUD 09/29/2028 09/29/2020 Adult Td,Tdap Booster 11/27/2029 11/28/2019, 005 LIPID PANEL 12/29/2029 12/29/2024, 11/28/2019 COLONOSCOPY 07/10/2033 07/11/2023, 03/12, 01/24/2018 COLORECTAL CANCER SCREENING 07/10/2033 HEPATITIS C SCREENING Completed 09/30/2020 HIV ONE-TIME SCREENING (18-65 YEARS) Completed 09/30/2020 PNEUMOCOCCAL VACCINES (0-49 years) Completed 07/27/2022, 01/25/2019, 06/30/2011, Additional history exists HEPATITIS A VACCINES Aged Out No long er eligible based on patient's age to complete this topic HIB VACCINES Aged Out No longer eligi ble based on patient's age to complete this topic MENINGOCOCCAL VACCINES (ACWY) Aged Out No longer eligible based on patient's age to complete this topic MENINGOCOCCAL VACCINES (B) Aged Out N o longer eligible based on patient's age to complete this topic Medical Devices Implanted Type Area Gas Engine Operator Device Identifier Shelf Expiration Date Model / Serial / Lot Iud Implanted: (Quantity not on file) Intrauterine Device Procedures Procedure Name Priority Date/Time Associated Diagnosis Comments FSH Routine 12/29/2024 8:19 AM EDT Perimenopause COMPREHENSIVE METABOLIC PANEL Routine 12/29/2024 8:19 AM EDT Screening for condition LIPID PANEL Routine 12/29/2024 8:19 AM EDT Screening for condition CBC AND DIFFERENTIAL Routine 12/29/2024 8:19 AM EDT Screening for condition PAP TEST Routine 12/28/2024 12:00 AM EDT ENDOSCOPY, COLON 07/11/2023 12:3 0 PM EDT BI MAMMOGRAM SCREENING WITH TOMOSYNTHESIS WITH CAD (BILATERAL) Routine 08/17/2022 11:10 AM EDT Encounter for screening mammogram for malignant neoplasm of breast HEPATITIS C ANTIBODY, QUALITATIVE Routine 09/30/2020 10:58 AM EDT Need for hepatitis C screening test from Last 3 Months or Most Recently Relevant to Health Maintenance Results * Comprehensive metabolic panel (12/29/2024 8:19 AM EDT) SODIUM 140 133 - 146 mmol/L [facility] POTASSIUM 4.5 3.3 - 5.1 mmol/L [facility] CHLORIDE 106 96 - 108 mmol/L [facility] CO2 24 21 - 35 mmol/L [facility] BUN 7 6 - 19 mg/dL [facility] CREATININE 0.50 0.5 - 1.5 mg/dL [facility] GLUCOSE 94 70 - 99 mg/dL [facility] ALBUMIN 4.1 3.9 - 4.8 g/dL [facility] TOTAL PROTEIN 7.1 6.5 - 8.0 g/dL [facility] CALCIUM 9.5 8.4 - 10.3 mg/dL [facility] ALKALINE PHOSPHATASE 57 39 - 117 U/L [facility] TOTAL BILIRUBIN 0.4 0.0 - 1.2 mg/dL [facility] AST 12 0 - 37 U/L [facility] ALT 11 0 - 40 U/L [facility] GLOBULIN 3.0 1 - 4.8 g/dL [facility] EGFR 116 >59 mL/min/1.7 3m2 [facility] Comment:Estimated glomerular filtration rate calculated using the CKD-EPI refit equation. ANION GAP 15 10 - 20 mmol/L [facility] Blood 12/29/2024 8:19 AM EDT 12/29/2024 8:22 AM EDT us Juan Carlos Cano MD LAB BLOOD ORDERABLES Final Resul t [facility] [address] [place] [address] * (ABNORMAL) CBC and differential (12/29/2024 8:19 AM EDT) WBC 5.41 4.00 - 11.00 K/uL [facility] RBC 4.35 4.00 - 5.20 M/uL [facility] HGB 13.7 12.0 - 16.0 g/dL [facility] HCT 41.9 36.0 - 46.0 % [facility] PLT 212 150 - 450 K/uL [facility] MCV 96.3 80.0 - 100.0 fL [facility] MCH 31.5(H) 27.0 - 31.0 pg [facility] MCHC 32.7 32.0 - 36.0 g/dL [facility] RDW 13.4 11.5 - 14.5 % [facility] MPV 10.5 8.4 - 12.0 fL [facility] NRBC 0.00 0.00 /100 WBCs [facility] ABSOLUTE NRBC 0.00 0.00 K/uL [facility] DIFF METHOD Auto [facility] NEUTS 64.5 48.0 - 76.0 % [facility] LYMPHS 24.2 18.0 - 41.0 % [facility] MONOS 8.7 4.0 - 11.0 % [facility] EOS 1.8 0.0 - 5.0 % [facility] BASOS 0.4 0.0 - 1.5 % [facility] Granulocytes, immature (%) 0.4 0.0 - 0.9 % [facility] ABSOLUTE NEUTS 3.49 1.92 - 7.60 K/uL [facility] ABSOLUTE LYMPHS 1.31 0.72 - 4.10 K/uL [facility] ABSOLUTE MONOS 0.47 0.16 - 1.10 K/uL [facility] ABSOLUTE EOS 0.10 0.00 - 0.50 K/uL [facility] ABSOLUTE BASOS 0.02 0.00 - 0.15 K/uL [facility] Granulocytes, immature 0.02 0.00 - 0.09 K/uL [facility] Blood 12/29/2024 8:19 AM EDT 12/29/2024 8:22 AM EDT us Juan Carlos Cano MD LAB BLOOD ORDERABLES Final Resul t [address] [address] * FSH (12/29/2024 8:19 AM EDT) FSH 6.4 IU/L [facility] Comment: FEMALE: Follicular: 3.5 - 12.5 mIU/ml. Ovulate: 4.7 - 21.5 mIU/ml. Luteal: 1.7 - 7.7 mIU/ml. Postmenopausal: 25.8 - 134.8 mIU/ml. Blood 12/29/2024 8:19 AM EDT 12/29/2024 8:22 AM EDT us Kristy Gastelum MD LAB BLOOD ORDERABLES Final Re sult [address] [address] * (ABNORMAL) Lipid panel (12/29/2024 8:19 AM EDT) HDL 71 mg/dL [facility] Comment: Interpretation <40 mg/dL: Low HDL cholesterol (major risk factor for CHD) Greater than or equal to 60 mg/dL: High HDL cholesterol ( negative risk factor for CHD) HDL - cholesterol is affected by a number of factors, e.g. smoking, excerise, hormones, sex and age. CHOLESTEROL 137 0 - 240 mg/dL [facility] TRIGLYCERIDES 98 30 - 160 mg/dL [facility] LDL 46(L) 50 - 129 mg/dL [facility] Comment: LDL levels in terms of risk for coronary heart disease: <100 mg/dL: Optimal 100-129 mg/dL: Near or above optimal 130-159 mg/dL: Borderline high 160-189 mg/dL: High >190 mg/dL: Very High CARDIAC RISK RATIO 1.9(L) 3.3 - 4.4 C [facility] Blood 12/29/2024 8:19 AM EDT 12/29/2024 8:23 AM EDT us Juan Carlos Cano MD LAB BLOOD ORDERABLES Final Resul t [address] [address] * Pap Test (12/28/2024 12:00 AM EDT) 12/28/2024 12/30/2024 9:5 0 AM EDT Narrative SEE NARRATIVE - 01/03/2025 3:48 PM EDT [address] [address] Proposal Development Manager: Ayaan Benitez MD FUNDS DEVELOPMENT DIRECTOR Cytology Report FINAL DIAGNOSIS A. PAP SMEAR (THIN PREP) CE: SPECIMEN ADEQUACY: Satisfactory for evaluation; transformation zone present. INTERPRETATION: NEGATIVE FOR INTRAEPITHELIAL LESION OR MALIGNANCY. This specimen was analyzed by the automated ThinPrep Imaging System ([employer].) and the selected dickson were reviewed by a impression printer. Electronically Signed Out By: SHERITA Pineda(ASCP) The Pap test is a screening test primarily for squamous cancers and precursors and has associated false-negative and false-positive results. New technologies such as liquid-based preparations may decrease but will not eliminate all false-negative results. Regular sampling and follow-up of unexplained clinical signs and symptoms are recommended to minimize false negative results. PROCEDURES/ADDENDA HPV Testing (Requested) Ordered Date: 12/30/2024 A. PAP SMEAR (THIN PREP) CE: High-risk HPV Panel w/ extended genotyping NEG HPV 16-NEG HPV 18-NEG HPV 45-NEG HPV 33/58-NEG HPV 31-NEG HPV 56/59/66-NEG HPV 51-NEG HPV 52-NEG HPV 35/39/68-NEG Performed by real-time polymerase chain reaction (PCR) at [facility], [address] [place] [address] using the FDA-approved [employer] Onclarity HPV Assay with extended genotyping. Uses of the assay in scenarios other than those approved by the FDA should be considered off-label use. The accuracy and precision of this test for all other off-label specimen sources has been verified in the Cytopathology Laboratory of the [facility] and has not been cleared or approved by the U.S. Food and Drug Administration. Clinical correlation is advised. The assay assesses the E6/E7 DNA target and utilizes human beta globin as an internal control. Cytology and HPV testing are screening assays and should not be used as the sole means of detecting cancer. False-positives and false-negatives can occur. CLINICAL HISTORY Date of Last Menstrual Period: Not Provided Contraceptive History: IUD Other Clinical Conditions: Screening Pap SPECIMEN SOURCE A: PAP SMEAR (THIN PREP) CE Patient Name: BYRON PERALTA : 1975 (Age: 49) Sex: F Institution: [facility] Location: [facility] Date of Collection: 12/28/2024 Date of Reported: 01/03/2025 15:48 Results to: Kristy Gastelum MD us Kristy Gastelum MD CYTOLOGY ORDERABLES Final Res ult SEE NARRATIVE * ENDOSCOPY, COLON (07/11/2023 12:30 PM EDT) Narrative Transcriptions Lucia Lemon MD - 07/11/2023 12:30 PM EDT [facility] Patient Name: Byron Adrián Attending MD:: LUCIA LEMON MD, Procedure Date: 07/11/2023 12:30 PM Date of : 1975 Age: 48 Admit Type: Outpatient Gender: Female Room: [place] [address] Referring MD: Juan Carlos Cano Exam Type: Colonoscopy Indications: Follow-up of Crohn's disease of the small bowel and colon, Disease activity assessment of Crohn'sdisease of the small bowel and colon, Assess therapeutic response to therapy of Crohn's disease of the small bowel and colon on Entyvio and Mercaptopurine Medications: Monitored Anesthesia Care Procedure: Informed consent was obtained from the patientafter discussion of the indications, limitations, alternatives, benefits, and risks of the procedure. Risks specifically discussed include but are not limited to medication reactions, missed lesions, bleeding, perforation, or the need for emergent surgery. Throughout the procedure, the patient's blood pressure, pulse, end-tidal CO2, and oxygensaturations were monitored continuously. The Olympus pediatric variable colonoscopePCF-[id number] #5 was introduced through the descending colostomyand advanced to the terminal ileum. The colonoscopy was performed without difficulty. The patient tolerated the procedure fairly well. The quality of the bowel preparation was adequate. The terminal ileum was photographed. Complications: No immediate complications. Estimated blood loss: Minimal. Findings: There was evidence of a prior ndx-wx-umsoxwj-colonic anastomosis in the cecum. This was patent and was characterized by healthy appearing mucosa. The anastomosis was traversed. Biopsies were taken witha cold forceps for histology in the neoterminalileum. Normal mucosa was found in the descending colon, at the splenic flexure, in the transverse colon and in the ascending colon. One biopsy was taken every 10cm with a cold forceps from the ascending colon, transverse colon and descending colon for Crohn's disease surveillance. These biopsy specimens fromthe ascending colon, transverse colon and descendingcolon were sent to Pathology. Estimated blood loss was minimal. The exam was otherwise normal throughout theexamined colon. Impression: - Patent end-to-end colo-colonic anastomosis, characterized by healthy appearing mucosa.Biopsied. - Normal mucosa in the descending colon, at the splenic flexure, in the transverse colon and in the ascending colon. Biopsied. Recommendation: - I will send results of your biopsy to you andyour referring physician or provider. If you do notreceive notification within 3 weeks, please call ouroffice. - Repeat colonoscopy in 3 years for surveillancebased on pathology results. LUCIA LEMON MD 07/11/2023 12:59:32 PM This report has been signed electronically. Number of Addenda: 0 Note Initiated On: 07/11/2023 12:30 PM Procedure Code(s): --- Professional --- 55906, Colonoscopy through stoma; with biopsy, single or multiple --- Technical --- 98973, Colonoscopy through stoma; with biopsy, single or multiple Diagnosis Code(s): --- Professional --- Z98.0, Intestinal bypass and anastomosis status K50.80, Crohn's disease of both small and large intestine without complications --- Technical --- Z98.0, Intestinal bypass and anastomosis status K50.80, Crohn's disease of both small and large intestine without complications CPT copyright 2021 [employer]. All rights reserved. The codes documented in this report are preliminary and upon front desk receptionist reviewmay be revised to meet current compliance requirements. Procedure Date: 07/11/2023 12:30:[address] [place] [id number] us Juan Carlos Cano MD GI PROCEDURE ORDERABLES Final Re sult * BI MAMMOGRAM SCREENING WITH TOMOSYNTHESIS WITH CAD (BILATERAL) (08/17/2022 11:10 AM EDT) Anatomical Region Laterality Modality Breast Left, Breast Right, Breast Bilateral Bila teral Mammography 08/18/2022 1:24 PM EDT Impressions 08/18/2022 1:29 PM EDT BILATERAL BREASTS: Benign, no evidence of malignancy. Recommend bilateral annual screening mammography in 12 months. DENSITY: There are scattered fibroglandular densities. Bi-RADS: BI-RADS CATEGORY: 2 - Benign finding. RIGHT RECOMMENDATION DUE DATE: 12 Months Recommendation: Right Mammography Screening LEFT RECOMMENDATION DUE DATE: 12 Months Recommendation: Left Mammography Screening Narrative 08/18/2022 1:29 PM EDT STUDY: Bilateral screening mammography with tomosynthesis and CAD TECHNIQUE: Bilateral full-field digital screening mammography is obtained and read in conjunction with computer-aided detection. Tomosynthesis as well as 2-D C view imaging were obtained. COMPARISON: 07/14/2012 and 06/16/2020 BILATERAL BREASTS: No new masses, suspicious calcifications or other abnormalities are seen. No significant interval change. Procedure Note Mariano Baca MD - 08/18/2022 STUDY: Bilateral screening mammography with tomosynthesis and CAD TECHNIQUE: Bilateral full-field digital screening mammography is obtainedand read in conjunction with computer-aided detection. Tomosynthesis aswell as 2-D C view imaging were obtained. COMPARISON: 07/14/2012 and 06/16/2020 BILATERAL BREASTS: No new masses, suspicious calcifications or otherabnormalities are seen. No significant interval change. IMPRESSION: BILATERAL BREASTS: Benign, no evidence of malignancy. Recommend bilateralannual screening mammography in 12 months. DENSITY: There are scattered fibroglandular densities. Bi-RADS: BI-RADS CATEGORY: 2 - Benign finding. RIGHT RECOMMENDATION DUE DATE: 12 Months Recommendation: Right Mammography Screening LEFT RECOMMENDATION DUE DATE: 12 Months Recommendation: Left Mammography Screening us Soumya Madhuri Amorbriana MIX HOUSE OPERATOR IMG MG EXAMS Final Result * Hepatitis C antibody, qualitative (09/30/2020 10:58 AM EDT) HCV NON-REACTIV E NON-REACTI VE [facility] Blood 09/30/2020 10:5 8 AM EDT 09/30/2020 11:00 AM EDT us Shon Bauer MD LAB BLOOD ORDERABLES Fi nal Result Performing Organization Address City/State/[facility] Co de Phone Number [facility] [address] [place] [address] from Last 3 Months or Most Recently Relevant to Health Maintenance Insurance [place] TOTAL CHOICE INDEMNITY [place] [employer] IN[employer] [facility] TOTAL CHOICE INDEMNITY [employer] [facility] TOTAL CHOICE INDEMNITY [employer] [facility] TOTAL CHOICE INDEMNITY TOTAL CHOICE INDEMNITY [employer] [facility] TOTAL CHOICE INDEMNITY [employer] [facility] TOTAL CHOICE INDEMNITY [facility] TOTAL CHOICE INDEMNITY Care Teams Order Entry Technician Relationship Specialty Start Date End Date Juan Carlos Cano MD [address] [place] [address] [place] [address] [email or web address] PCP - General Family Medicine 11/12/22 Shon Bauer MD [address] [place] [address] [place] [address] [email or web address] Historical LMR Provider 01/29/17 Zena Hill DO [address] [place] [address] [place] [address] [email or web address] Historical LMR Provider 01/29/17 Vidhya Casey MD [address] [place] [address] [place] [address] [email or web address] Historical LMR Provider 01/29/17 Ayaan Bauer MD [address] [place] [address] [address] [place] [id number] [email or web address] Historical LMR Provider 01/29/17 Additional Source Comments The information contained in this document represents components of the legal health record. It is not the complete legal health record.[facility]
--- OUTSIDE RECORDS SUMMARY | 2025-01-31 09:25 | XMS_ITS | Encounter Summary ---
Author Organization [facility] Address [address] [place] [address] Phone Care Team Providers Care Franchise Development Manager Name Role Phone Shon Bauer MD Unavailable [phone] Zena Hill DO Unavailable [phone] Vidhya Casey MD Unavailable [phone] Ayaan Bauer MD Unavailable [phone] Juan Carlos Cano MD Primary Care Provider [phone] Encounter Details Date Type Department Care Team (Late st Contact Info) Description 04/05/2023 Procedure Pass [facility] Endoscopy Admitting Dept Virtual Department [address] [place] [address] Social History Tobacco Use Types Packs/Day Years [...] st Contact Info) Description 08/27/2024 Procedure Pass [address] [place] [address] 02/26/2025 10:00 AM EST Office Visit [address] [address] Juan Carlos Cano MD [address] [place] [address] [place] [address] 03/04/2025 7:30 AM EST Appointment [address] [place] [address] Juan Carlos Cano MD [address] [place] [address] [place] [address] 03/15/2025 1:30 PM EST Infusion [facility] [address] [place] [address] Momo Lemon MD [address] [address] [email or web address] 05/10/2025 1:30 PM EST Infusion [facility] [address] [address] Momo Lemon MD [address] [address] 07/05/2025 1:30 PM EDT Infusion [facility] [address] [address] oMmo Lemon MD [address] [place] [address] [email or web address] documented as of this encounter Visit Diagnoses Not on filedocumented in this encounter Additional Health Concerns Infection Onset Date Last Indicated Resolved Time CoV-Exposed Comment:Recent close contact documented in the Travel/Symptom Screening Form 03/25/2023 03/31/2023 04/05/2023 1:[address] Assessment Noted Time PHQ-2 Depression Total Score: 1 07/28/19 8:52 AM EDT documented as of this encounter Care Teams Franchise Development Manager Relationship Specialty Start Date End Date Juan Carlos Cano MD [address] [place] [address] 7 [place] [address] [email or web address] PCP - General Family Medicine 11/12/22 Shon Bauer MD [address] [place], [place] [address] [place] [address] [email or web address] Historical LMR Provider 01/29/17 Zena Hill DO [address] [place] [address] 7 [place] [address] [email or web address] Historical LMR Provider 01/29/17 Vidhya Casey MD [address] [place] [address] [address] [place] [address] [email or web address] Historical LMR Provider 01/29/17 Ayaan Bauer MD [address] [place] [address] [address] [place] [phone] [email or web address] Historical LMR Provider 01/29/17 documented as of this encounter Additional Source Comments The information contained in this document represents components of the legal health record. It is not the complete legal health record.[facility]
--- OUTSIDE RECORDS SUMMARY | 2025-01-31 09:25 | XMS_ITS | Encounter Summary ---
Author Organization [facility] Address [address] [place] [address] Phone Care Team Providers Care Cafeteria Helper Name Role Phone Shon Bauer MD Unavailable [phone] Zena Hill DO Unavailable [phone] Vidhya Casey MD Unavailable [phone] Ayaan Bauer MD Unavailable [phone] Juan Carlos Cano MD Primary Care Provider [phone] Encounter Details Date Type Department Care Team (Late st Contact Info) Description 07/11/2023 Procedure Pass [facility] Endoscopy Admitting Dept Virtual Department [address] [place], [place] [id number] Social History Tobacco Use Types Packs/Day Years [...] st Contact Info) Description 08/27/2024 Procedure Pass [facility] - [address] [place] [address] 02/26/2025 10:00 AM EST Office Visit [facility] [address] [facility] [place] [address] Juan Carlos Cano MD [address] [facility], [address] [place] [address] 03/04/2025 7:30 AM EST Appointment [address] [place] [address] Juan Carlos Cano MD [address] [facility], [address] [place] [address] 03/15/2025 1:30 PM EST Infusion [facility] [address] [place] [address] Momo Lemon MD [address] [place] [address] 05/10/2025 1:30 PM EST Infusion [facility]fusion [address] [address] Momo Lemon MD [address] [place] [address] 07/05/2025 1:30 PM EDT Infusion [facility] [address] [address] Momo Lemon MD [address] [place] [address] documented as of this encounter Visit Diagnoses Not on filedocumented in this encounter Additional Health Concerns Assessment Noted Time PHQ-2 Depression Total Score: 1 07/28/19 23 8:52 AM EDT documented as of this encounter Care Teams Cafeteria Helper Relationship Specialty Start Date End Date Juan Carlos Cano MD [address] [facility] 7 [place] [address] PCP - General Family Medicine 11/12/22 Shon Bauer MD [address] [place] [address] [address] [place] [phone] [email or web address] [email or web address] Historical LMR Provider 01/29/17 Zena Hill DO [address] [place] [address] 7 [place] [address] [email or web address] Historical LMR Provider 01/29/17 Vidhya Casey MD [address] [place] [address] 7 [place] [address] [email or web address] Historical LMR Provider 01/29/17 Ayaan Bauer MD [address] [place] [address] [address] [place] [phone] [email or web address] Historical LMR Provider 01/29/17 documented as of this encounter Additional Source Comments The information contained in this document represents components of the legal health record. It is not the complete legal health record.[facility]
--- OUTSIDE RECORDS SUMMARY | 2025-01-31 09:26 | XMS_ITS | Encounter Summary ---
Author Organization [facility] Address [address] [place] [address] [place] [address] Phone Care Team Providers Care Tree Expert Name Role Phone Susan Mckeon RN INVASIVE Unavailable Shon Bauer MD Unavailable Yenny Doty DANCING MASTER Unavailable Zena Hill DO Unavailable Stacie Vick DANCING MASTER Unavailable Soumya Paiz SECTION CHIEF Unavailable Inna Boyer MD Unavailable Vidhya Casey MD Unavailable Ian Walsh MD Unavailable [phone] Slim Rosario RN INVASIVE Unavailable Ayaan Bauer MD Unavailable Jacob Landa MD Unavailable [phone] Shon Bauer MD Primary Care Provider Juan Carlos Cano MD Primary Care Provider [phone] Juan Carlos Cano MD Primary Care Provider Encounter Details Date Type Department Care Team (Late st Contact Info) Description 12/15/2017 Ancillary Orders Virtual Department [address] [place] [address] Momo Lemon MD [address] [place] [address] [email or web address] Social History Tobacco Use Types Packs/Day Years Used Date Smoking Tobacco: Every Day Cigarettes Smokeless Tobacco: Never Alcohol Use Standard Drinks/Week Comments Yes 0 (1 standard drink = 0.6 oz pur e alcohol) socially, 3x's monthly Comments Unknown Sex and Gender Information Value Date Recorded Sex Assigned at Female 07/04/2021 9:02 PM EDT Legal Sex Female 8:11 PM EST Gender Identity Female 07/04/2021 9:02 PM EDT Sexual Orientation Not on file documented as of this encounter Plan of Treatment Upcoming Encounters Date Type Department Care Team (Late st Contact Info) Description 08/27/2024 Procedure Pass [address] [place] [address] 02/26/2025 10:00 AM EST Office Visit [facility] Medicine [address] [place] [address] Juan Carlos Cano MD [address] [place] [address] [email or web address] 03/04/2025 7:30 AM EST Appointment [address] [place] [address] Juan Carlos Cano MD [address] [place] [address] 03/15/2025 1:30 PM EST Infusion [facility] [address] [place] [address] Momo Lemon MD [address] [place] [address] 05/10/2025 1:30 PM EST Infusion [facility] [address] [place] [address] Momo Lemon MD [address] [address] [email or web address] 07/05/2025 1:30 PM EDT Infusion [facility] [address] [place] [address] Momo Lemon MD [address] [address] [email or web address] documented as of this encounter Visit Diagnoses Not on filedocumented in this encounter Additional Health Concerns Infection Onset Date Last Indicated Resolved Time CoV-Risk 03/03/2021 03/03/2021 03/13/2021 1:24 AM EST CoV-Exposed Comment:Recent close contact documented in the Travel/Symptom Screening Form 03/25/2023 03/31/2023 04/05/2023 1:[address] documented as of this encounter Care Teams Tree Expert Relationship Specialty Start Date End Date Shon Bauer MD [address] [place] [phone] [email or web address] PCP - General 02/15/17 04/18/22 Juan Carlos Cano MD [address] [facility] 7 [place] [address] [email or web address] PCP - General Family Medicine 04/19/22 11/11/22 Juan Carlos Cano MD [address] [place] [address] 7 [place] [address] [email or web address] PCP - General Family Medicine 11/12/22 Susan Mckeon, WINDY [address] [facility], 2nd [place] [address] Historical LMR Provider 01/29/17 04/18/21 Shon Bauer MD [address] [place] [address] 7 [place] [address] [email or web address] Historical LMR Provider 01/29/17 Yenny Doty NP [address] [place] [address] Historical LMR Provider 01/29/17 2 Zena Hill DO [address] [place] [address] [email or web address] Historical LMR Provider 01/29/17 Stacie Vick NP [address] [place] [address] Historical LMR Provider 01/29/17 2 Soumya Paiz FNP [address] [place] [address] 7 [place] [address] [email or web address] Historical LMR Provider 01/29/17 04/18/21 Inna Boyer MD [address] [place] [address], 2nd [place] [address] Historical LMR Provider 01/29/17 Vidhya Casey MD [address] [place] [address] 7 [place] [address] Historical LMR Provider 01/29/17 Ian Walsh MD [address] [facility] [address] [place] [address] Historical LMR Provider 01/29/17 2 Slim Rosario CNP [address] [facility], 2nd [place] [address] [email or web address] Historical LMR Provider 01/29/17 04/18/21 Ayaan Bauer MD [address] [facility] [place] [phone] [email or web address] Historical LMR Provider 01/29/17 Jacob Landa MD [address] [place] [address] Historical LMR Provider 01/29/17 2 documented as of this encounter Additional Source Comments The information contained in this document represents components of the legal health record. It is not the complete legal health record.[facility]
--- OUTSIDE RECORDS SUMMARY | 2025-01-31 09:26 | XMS_ITS | Encounter Summary ---
Author Organization [facility] Address [address] [place] [address] [place] [address] Phone Care Team Providers Care Orthopedic Shoe Maker Name Role Phone Susan Mckeon ASSISTANT MANAGER QUALITY MANAGEMENT Unavailable Shon Bauer MD Unavailable [phone] Yenny Doty IMMIGRATION INVESTIGATOR Unavailable Zena Hill DO Unavailable Stacie Vick IMMIGRATION INVESTIGATOR Unavailable Soumya Paiz WARP HAND Unavailable Inna Boyer MD Unavailable Vidhya Casey MD Unavailable Ian Walsh MD Unavailable Slim Rosario ASSISTANT MANAGER QUALITY MANAGEMENT Unavailable Ayaan Bauer MD Unavailable Jacob Landa MD Unavailable [phone] Shon Bauer MD Primary Care Provider Juan Carlos Cano MD Primary Care Provider Juan Carlos Cano MD Primary Care Provider [phone] Encounter Details Date Type Department Care Team (Latest Contact Info) Description 11/30/[address] [facility] Laboratory [address] [place], [place] [phone] Momo Leomn MD 10 [facility] 2 [place] [address] [email or web address] Abdominal pain, generalized (Primary Dx); Crohn's disease of both small and large intestine with intestinal obstruction Social History Tobacco Use Types Packs/Day Years Used Date Smoking Tobacco: Every Day Smokeless Tobacco: Never Comments Unknown Sex and Gender Information Value Date Recorded Sex Assigned at Female 07/04/2021 9:02 PM EDT Legal Sex Female 8:11 PM EST Gender Identity Female 07/04/2021 9:02 PM EDT Sexual Orientation Not on file documented as of this encounter Plan of Treatment Upcoming Encounters Date Type Department Care Team (Late st Contact Info) Description 08/27/2024 Procedure Pass [address] [place] [address] 02/26/2025 10:00 AM EST Office Visit [facility] Medicine [address] [place] [address] Juan Carlos Cano MD [address] [place] [address] [email or web address] 03/04/2025 7:30 AM EST Appointment [address] [place] [address] Juan Carlos Cano MD [address] [place] [address] 03/15/2025 1:[address] [facility] [address] [place] [address] Momo Lemon MD [address] [address] 05/10/2025 1:[address] [facility]fusion [facility] [address] [place] [address] Momo Lemon MD 10 [facility] 2 [place] [address] 07/05/2025 1:30 PM EDT Infusion [facility] 30 [place] [address] Momo Lemon MD 10 [facility] 2 [place] [address] [email or web address] documented as of this encounter Results * Quantiferon-TB Gold (11/30/2017 4:04 PM EDT) [facility] QuantiFERON-TB Gold Negative Negative [facility] Comment: (NOTE) No interferon-gamma response to M. tuberculosis antigens was detected. Infection with M. tuberculosis is unlikely. A single negative result does not exclude infection with M. tuberculosis. In patients at high risk for M.tuberculosis infection, a second test should be considered in accordance with the 2017 ATS/IDSA/CDC Clinical Practice Guidelines for Diagnosis of Tuberculosis in Adults and Children [Lewinsohn DM et. al. Clin. Infect. Dis. 2017;64(2):111-115]. TB1 Ag minus Nil NEG 0.01 IU/mL [facility] TB2 Ag minus Nil NEG 0.02 IU/mL [facility] Mitogen minus Nil >10.00 IU/mL [facility] Nil Result 0.07 IU/mL [facility] Blood 11/30/2017 4:04 PM EDT 11/30/2017 4:09 PM EDT us Momo Lemon MD LAB BLOOD ORDERABLES Final Res ult [facility] [address] [place] [address] * Hepatitis B surface antigen (11/30/2017 4:04 PM EDT) HBV SURFACE ANTIGEN Negative Negative [facility] Blood 11/30/2017 4:04 PM EDT 11/30/2017 4:09 PM EDT Momo Lemon MD LAB BLOOD ORDERABLES Final Res ult Performing Organization Address [facility] Co de Phone Number [address] [address] * Hepatitis B surface antibody (11/30/2017 4:04 PM EDT) HBV SURFACE ANTIBODY Negative [facility] Comment: Unvaccinated: Negative Vaccinated: Positive Blood 11/30/2017 4:04 PM EDT 11/30/2017 4:09 PM EDT Momo Lemon MD LAB BLOOD ORDERABLES Final Res ult Performing Organization Address [facility] de Phone Number [address] [address] * C-Reactive Protein (11/30/2017 4:04 PM EDT) Pathologist [facility] C REACTIVE PROTEIN 1.8 0.0 - 4.0 mg/L [facility] Blood 11/30/2017 4:04 PM EDT 11/30/2017 4:09 PM EDT Momo Lemon MD LAB BLOOD ORDERABLES Final Res ult Performing Organization Address [facility] Co de Phone Number [address] [address] * (ABNORMAL) Comprehensive metabolic panel (11/30/2017 4:04 PM EDT) SODIUM 139 133 - 146 mmol/L [facility] POTASSIUM 4.2 3.3 - 5.1 mmol/L [facility] CHLORIDE 101 96 - 108 mmol/L [facility] CO2 27 21 - 35 mmol/L [facility] BUN 7 6 - 19 mg/dL [facility] CREATININE 0.60 0.5 - 1.5 mg/dL [facility] GLUCOSE 101(H) 70 - 99 mg/dL [facility] ALBUMIN 4.1 3.9 - 4.8 g/dL [facility] TOTAL PROTEIN 6.9 6.5 - 8.0 g/dL [facility] CALCIUM 9.5 8.4 - 10.3 mg/dL [facility] ALKALINE PHOSPHATASE 43 39 - 117 U/L [facility] TOTAL BILIRUBIN 0.4 0.0 - 1.2 mg/dL [facility] AST 16 0 - 37 U/L [facility] ALT 21 0 - 40 U/L [facility] GLOBULIN 2.8 1 - 4.8 g/dL [facility] EGFR 114 >59 mL/min/1.7 3m2 [facility] Comment:If patient is black, multiply result by 1.159. Estimated glomerular filtration rate calculated using the CKD-EPI equation. ANION GAP 15 10 - 20 mmol/L [facility] Blood 11/30/2017 4:04 PM EDT 11/30/2017 4:09 PM EDT us Momo Lemon MD LAB BLOOD ORDERABLES Final Res ult [facility] [address] [place] [address] * (ABNORMAL) CBC (11/30/2017 4:04 PM EDT) WBC 4.21 3.40 - 11.20 K/uL [facility] RBC 3.54(L) 3.80 - 4.80 M/uL [facility] HGB 12.2 12.0 - 15.0 g/dL [facility] HCT 35.6(L) 36.0 - 46.0 % [facility] PLT 327 130 - 400 K/uL [facility] MCV 100.6(H) 79.0 - 98.0 fL [facility] MCH 34.5 27.0 - 34.8 pg [facility] MCHC 34.3 31.5 - 36.0 g/dL [facility] RDW 14.9(H) 10.8 - 14.6 % [facility] MPV 9.6 9.4 - 12.4 fl [facility] NRBC 0.00 /100 WBCs [facility] ABSOLUTE NRBC 0.00 K/uL [facility] Blood 11/30/2017 4:04 PM EDT 11/30/2017 4:09 PM EDT us Momo Lemon MD LAB BLOOD ORDERABLES Final Res ult [facility] [address] [place] [address] documented in this encounter Visit Diagnoses Diagnosis Abdominal pain, generalized- Primary Crohn's disease of both small and large intestine with intestinal obstruction documented in this encounter Additional Health Concerns Infection Onset Date Last Indicated Resolved Time CoV-Risk 03/03/2021 03/03/2021 03/13/2021 1:24 AM EST CoV-Exposed Comment:Recent close contact documented in the Travel/Symptom Screening Form 03/25/2023 03/31/2023 04/05/2023 1:[address] documented as of this encounter Care Teams Orthopedic Shoe Maker Relationship Specialty Start Date End Date Shon Bauer MD [address] [phone] [email or web address] PCP - General 02/15/17 04/18/22 Juan Carlos Cano MD [address] [place] [address] [email or web address] PCP - General Family Medicine 04/19/22 11/11/22 Juan Carlos Cano MD [address] [place] [address] [email or web address] PCP - General Family Medicine 11/12/22 Susan Mckeon CNP 15 [facility], 2nd [place] [address] [email or web address] Historical LMR Provider 01/29/17 04/18/21 Shon Bauer MD [address] [place] [address] 7 [place] [phone] [email or web address] Historical LMR Provider 01/29/17 Yenny Doty IMMIGRATION INVESTIGATOR 1 [place] [address] Historical LMR Provider 01/29/17 2 Zena Hill DO [address] [place] [address] 7 [place] [address] [email or web address] Historical LMR Provider 01/29/17 Stacie Vick NP [address] [place] [address] Historical LMR Provider 01/29/17 2 Soumya Paiz FNP [address] [place] [address] 7 [place] [address] [email or web address] Historical LMR Provider 01/29/17 04/18/21 Inna Boyer MD 15 [facility], 2nd [place] [address] Historical LMR Provider 01/29/17 Vidhya Casey MD [address] [place] [address] 7 [place] [address] [email or web address] Historical LMR Provider 01/29/17 Ian Walsh MD 236 [facility] [address] [place] [address] Historical LMR Provider 01/29/17 2 Slim Rosario CNP 15 [facility], [address] [place] [address] [email or web address] Historical LMR Provider 01/29/17 04/18/21 Ayaan Bauer MD 234 [facility]7 [place] [phone] [email or web address] Historical LMR Provider 01/29/17 Jacob Landa MD [address] [place] [address] Historical LMR Provider 01/29/17 2 documented as of this encounter Additional Source Comments The information contained in this document represents components of the legal health record. It is not the complete legal health record.[facility]
--- OUTSIDE RECORDS SUMMARY | 2025-01-31 09:26 | XMS_ITS | Encounter Summary ---
Author Organization [facility] Address [address] [place] [address] [place] [address] Phone Care Team Providers Care Mold Cutting Machine Operator Name Role Phone Susan Mckeon ENVIRONMENTAL STUDIES DEPARTMENT CHAIR Unavailable Shon Bauer MD Unavailable Yenny Doty DOCTOR OF VETERINARY MEDICINE Unavailable Zena Hill DO Unavailable Stacie Vick DOCTOR OF VETERINARY MEDICINE Unavailable Soumya Paiz E COMMERCE RETAILER Unavailable Inna Boyer MD Unavailable Vidhya Casey MD Unavailable Ian Walsh MD Unavailable Slim Rosario ENVIRONMENTAL STUDIES DEPARTMENT CHAIR Unavailable Ayaan Bauer MD Unavailable Jacob Landa MD Unavailable [phone] Shon Bauer MD Primary Care Provider Juan Carlos Cano MD Primary Care Provider Juan Carlos Cano MD Primary Care Provider [phone] Reason for Referral * MRI/CAT Scan - Closed Specialty Diagnoses / Procedures Referred By Contac t Referred To Contact Radiology Diagnoses Generalized abdominal pain Crohn's disease of both small and large intestine with intestinal obstruction Procedures CT Abdomen/Pelvis Lucia Lemon MD Phone: tel: fax: [email or web address] Referral ID Status Reason Start Date Expiration Date Visits Re quested Visits Authorized [id number] Closed 12/01/2017 12/30/2017 1 1 Encounter Details Date Type Department Care Team (Late Contact Info) Description 12/01/2017 Ancillary Orders Virtual Department 30 [place] [address] Lucia Lemon MD [address] [place] [address] [email or web address] Generalized abdominal pain; Crohn's disease of both small and large [...] Encounters Date Type Department Care Team (Late Contact Info) Description 08/27/2024 Procedure Pass [address] [place] [address] 02/26/2025 10:00 AM EST Office Visit [facility] Medicine [address] [place] [address] Juan Carlos Cano MD [address] [place] [address], [facility] 7 [place] [address] [email or web address] 03/04/2025 7:30 AM EST Appointment [address] [place] [address] Juan Carlos Cano MD [address] [place] [address], [address] [place] [address] 03/15/2025 1:30 PM EST Infusion [facility] Infusion [address] [address] Lucia Lemon MD [address] [address] 05/10/2025 1:30 PM EST Infusion [facility] Infusion [address] [address] Lucia Lemon MD [address] [place] [address] 07/05/2025 1:30 PM EDT Infusion [facility] Infusion [address] [address] Lucia Lemon MD [address] [place] [address] documented as of this encounter Results * CT ABDOMEN/PELVIS WITH CONTRAST (12/06/2017 1:51 PM EDT) Anatomical Region Laterality Modality Abdomen, Pelvis Computed Tomogra phy 12/06/2017 1:57 PM EDT Impressions 12/06/2017 2:06 PM EDT Fatty infiltration of liver. Stable left adrenal adenoma and post-surgical bowel changes without acute intra-abdominal or retroperitoneal pathology or specific etiology of abdominal pain identified. Status-post cholecystectomy without other significant interval change from 03/29/2015. TOTAL CTDIvol: 8.40 mGy POS - [id number] Narrative 12/06/2017 2:06 PM EDT COMPARISON: 03/29/2015 TECHNIQUE: After the administration of oral and intravenous contrast, multidetector CT is obtained from dome of the liver through the inferior pubic rami. Multiplanar reformatted images generated. Automated exposure control utilized FINDINGS: There is diffuse hepatic fatty infiltration without focal mass, dominant cyst, bile duct dilatation, or perihepatic ascites present. Patient is now status-post cholecystectomy and no choledocholithiasis is seen. Portal vein is grossly patent. Spleen and adrenal glands are stable in appearance without interval change in the chronic left adrenal adenoma. No pancreatic mass, duct dilatation, or peripancreatic inflammatory changes are detected. No renal mass, dominant cyst, hydronephrosis, or nephrolithiasis are present. Bladder is unremarkable in appearance. There is no evidence of small bowel obstruction. The ileocolic anastomosis is within normal limits in appearance and the left lower quadrant stoma is stable as is the residual distal rectosigmoid segment. No surrounding inflammatory changes are identified. No aortoiliac aneurysm or pathologically enlarged mesenteric, para-aortic, iliac chain, or inguinal lymph nodes are identified. An IUD is again seen within the uterus. Adnexal structures are stable. No significant free fluid collections are demonstrated in the dependent portion of the pelvis. No bowel-containing abdominal wall hernia. No focal infiltrate or pleural effusion demonstrated at the lung bases. No traumatic or destructive skeletal lesions are present. Procedure Note Lucia Bullard MD - 12/06/2017 COMPARISON: 03/29/2015 TECHNIQUE: After the administration of oral and intravenous contrast,multidetector CT is obtained from dome of the liver through the inferiorpubic rami. Multiplanar reformatted images generated. Automated exposurecontrol utilized FINDINGS: There is diffuse hepatic fatty infiltration without focal mass, dominantcyst, bile duct dilatation, or perihepatic ascites present. Patient isnow status-post cholecystectomy and no choledocholithiasis is seen. Portal vein is grossly patent. Spleen and adrenal glands are stable inappearance without interval change in the chronic left adrenal adenoma.No pancreatic mass, duct dilatation, or peripancreatic inflammatorychanges are detected. No renal mass, dominant cyst, hydronephrosis, or nephrolithiasis arepresent. Bladder is unremarkable in appearance. There is no evidence of small bowel obstruction. The ileocolicanastomosis is within normal limits in appearance and the left lowerquadrant stoma is stable as is the residual distal rectosigmoid segment.No surrounding inflammatory changes are identified. No aortoiliac aneurysm or pathologically enlarged mesenteric, para-aortic,iliac chain, or inguinal lymph nodes are identified. An IUD is again seenwithin the uterus. Adnexal structures are stable. No significant freefluid collections are demonstrated in the dependent portion of the pelvis.No bowel-containing abdominal wall hernia. No focal infiltrate or pleural effusion demonstrated at the lung bases.No traumatic or destructive skeletal lesions are present. IMPRESSION: Fatty infiltration of liver. Stable left adrenal adenoma andpost-surgical bowel changes without acute intra-abdominal orretroperitoneal pathology or specific etiology of abdominal painidentified. Status-post cholecystectomy without other significantinterval change from 03/29/2015. TOTAL CTDIvol: 8.40 mGy POS - [id number] Lucia Lemon MD IMG CT ABD/PELVIS Final Result documented in this encounter Visit Diagnoses Diagnosis Generalized abdominal pain Abdominal pain, generalized Crohn's disease of both small and large intestine with intestinal obstruction Generalized abdominal pain Abdominal pain, generalized Crohn's disease of both small and large intestine with intestinal obstruction documented in this encounter Additional Health Concerns Infection Onset Date Last Indicated Resolved Time CoV-Risk 03/03/2021 03/03/2021 03/13/2021 1:24 AM EST CoV-Exposed Comment:Recent close contact documented in the Travel/Symptom Screening Form 03/25/2023 03/31/2023 04/05/2023 1:[address] documented as of this encounter Care Teams Mold Cutting Machine Operator Relationship Specialty Start Date End Date Shon Bauer MD [address] [place] [phone] [email or web address] PCP - General 02/15/17 04/18/22 Juan Carlos Cano MD [address] [place] [address] [email or web address] PCP - General Family Medicine 04/19/22 11/11/22 Juan Carlos Cano MD [address] [place] [address] 7 [place] [address] [email or web address] PCP - General Family Medicine 11/12/22 Susan Mckeon, WINDY [address] [address] [email or web address] Historical LMR Provider 01/29/17 04/18/21 Shon Bauer MD [address] [place] [address] [phone] [email or web address] Historical LMR Provider 01/29/17 Yenny Doty NP 1 [place] [address] Historical LMR Provider 01/29/17 2 Zena Hill DO [address] [place] [address] 7 [place] [address] [email or web address] Historical LMR Provider 01/29/17 Stacie Vick NP [address] [place] [address] Historical LMR Provider 01/29/17 2 Soumya Paiz FNP [address] [place] [address] 7 [place] [address] [email or web address] Historical LMR Provider 01/29/17 04/18/21 Inna Boyer MD [address] [address] Historical LMR Provider 01/29/17 Vidhya Casey MD 234 [facility], [address] [place] [address] Historical LMR Provider 01/29/17 Ian Walsh MD 236 [facility] [address] [place] [phone] Historical LMR Provider 01/29/17 2 Slim Rosario CNP 15 [facility], [address] [place] [address] [email or web address] Historical LMR Provider 01/29/17 04/18/21 Ayaan Bauer MD 234 [facility] [address] [place] [phone] [email or web address] Historical LMR Provider 01/29/17 Jacob Landa MD [address] [place] [address] Historical LMR Provider 01/29/17 2 documented as of this encounter Additional Source Comments The information contained in this document represents components of the legal health record. It is not the complete legal health record.[facility]
--- OUTSIDE RECORDS SUMMARY | 2025-01-31 09:26 | XMS_ITS | Encounter Summary ---
Author Organization [facility] Address [address] [place] [address] [place] [address] Phone Care Team Providers Care Upfitter Name Role Phone Susan Mckeon ASSISTANT COMMISSIONER Unavailable Shon Bauer MD Unavailable Yenny Doty MANDARIN CHINESE TEACHER Unavailable Zena Hill DO Unavailable Stacie Vick MANDARIN CHINESE TEACHER Unavailable Soumya Paiz FILTER ASSEMBLER Unavailable Inna Boyer MD Unavailable Vidhya Casey MD Unavailable Ian Walsh MD Unavailable Slim Rosario ASSISTANT COMMISSIONER Unavailable Ayaan Bauer MD Unavailable Jacob Landa MD Unavailable [phone] Shon Bauer MD Primary Care Provider Juan Carlos Cano MD Primary Care Provider Juan Carlos Cano MD Primary Care Provider Encounter Details Date Type Department Care Team (Latest Contact Info) Description 12/13/2017 Transcribe Orders [facility] Laboratory [address] [address] Momo Lemon MD 10 [facility] 2 [place] [address] Abdominal pain, unspecified abdominal location (Primary Dx) Social History Tobacco Use Types Packs/Day Years [...] st Contact Info) Description 08/27/2024 Procedure Pass [address] [place] [address] 02/26/2025 10:00 AM EST Office Visit [address] [address] Juan Carlos Cano MD [address] [place] [address] 03/04/2025 7:30 AM EST Appointment [address] [place] [address] Juan Carlos Cano MD [address] [place] [address] 03/15/2025 1:30 PM EST Infusion [facility] Medical Infusion Center 30 [place] [address] Momo Lemon MD [address] [address] 05/10/2025 1:30 PM EST Infusion [facility] 30 [place] [address] Momo Lemon MD 10 [facility] 2 [place] [address] 07/05/2025 1:30 PM EDT Infusion [facility] Infusion [place] 30 [place] [address] Momo Lemon MD 10 [facility] 2 [place] [address] documented as of this encounter Results * Calprotectin, stool (12/16/2017 7:00 AM EDT) CALPROTECTIN <15.6 <=50.0 (Normal) mcg/g [facility] DPT OF LAB MED AND PAT+ Stool (Stool) 12/16/2017 7:0 0 AM EDT 12/16/2017 9:01 AM EDT us Momo Lemon MD BODY FLUIDS AND STOOLS ORDERAB LES Final Result [facility] DPT OF LAB MED AND PAT+ [address] [place] [address] * Vitamin B12 (12/13/2017 3:17 PM EDT) VITAMIN B12 751 232 - 1,245 pg/mL [facility] Blood 12/13/2017 3:17 PM EDT 12/13/2017 3:23 PM EDT us Momo Lemon MD LAB BLOOD ORDERABLES Final Res ult [facility] [address] [place] [address] * Ferritin (12/13/2017 3:17 PM EDT) FERRITIN 105 13 - 150 ug/L [facility] Blood 12/13/2017 3:17 PM EDT 12/13/2017 3:23 PM EDT Momo Lemon MD LAB BLOOD ORDERABLES Final Res ult Performing Organization Address [facility] Co de Phone Number [address] [address] * Iron and iron binding capacity (12/13/2017 3:17 PM EDT) IRON 82 30 - 160 ug/dL [facility] IRON BINDING CAPACITY 357 228 - 428 ug/dL [facility] TRANSFERRIN SATURAT. 23 15 - 50 % [facility] Blood 12/13/2017 3:17 PM EDT 12/13/2017 3:23 PM EDT Momo Lemon MD LAB BLOOD ORDERABLES Final Res ult Performing Organization Address [facility] Co de Phone Number [address] [address] * (ABNORMAL) Lipase (12/13/2017 3:17 PM EDT) LIPASE 67(H) 16 - 63 U/L [facility] Blood 12/13/2017 3:17 PM EDT 12/13/2017 3:23 PM EDT Momo Lemon MD LAB BLOOD ORDERABLES Final Res ult Performing Organization Address [facility] de Phone Number [address] [address] documented in this encounter Visit Diagnoses Diagnosis Abdominal pain, unspecified abdominal location- Primary documented in this encounter Additional Health Concerns Infection Onset Date Last Indicated Resolved Time CoV-Risk 03/03/2021 03/03/2021 03/13/2021 1:24 AM EST CoV-Exposed Comment:Recent close contact documented in the Travel/Symptom Screening Form 03/25/2023 03/31/2023 04/05/2023 1:[address] documented as of this encounter Care Teams Upfitter Relationship Specialty Start Date End Date Shon Bauer MD [address] [place] [address] 7 [place] [phone] [email or web address] PCP - General 02/15/17 04/18/22 Juan Carlos Cano MD [address] [place] [address] 7 [place] [phone] [email or web address] PCP - General Family Medicine 04/19/22 11/11/22 Juan Carlos Cano MD [address] [place] [address] 7 [place] [phone] [email or web address] PCP - General Family Medicine 11/12/22 Susan Mckeon CNP [address] [place] [address], 2[address] [place] [address] [email or web address] Historical LMR Provider 01/29/17 04/18/21 Shon Bauer MD [address] [place] [address] [place] [phone] [email or web address] Historical LMR Provider 01/29/17 Yenny Doty MANDARIN CHINESE TEACHER 1 [place] [address] Historical LMR Provider 01/29/17 2 Zena Hill DO [address] [place] [address] 7 [place] [phone] [email or web address] Historical LMR Provider 01/29/17 Stacie Vick NP [address] [place] [address] Historical LMR Provider 01/29/17 2 Soumya Paiz FNP [address] [place] [address] 7 [place] [address] Historical LMR Provider 01/29/17 04/18/21 Inna Boyer MD [address] [place] [address] Historical LMR Provider 01/29/17 Vidhya Casey MD [address] [place] [address] Historical LMR Provider 01/29/17 Ian Walsh MD [address] [place] [phone] Historical LMR Provider 01/29/17 2 Slim Rosario ASSISTANT COMMISSIONER [address] [place] [address] Historical LMR Provider 01/29/17 04/18/21 Ayaan Bauer MD [address] [place], [place] [address] [place] [phone] [email or web address] Historical LMR Provider 01/29/17 Jacob Landa MD [address] [place] [address] Historical LMR Provider 01/29/17 2 documented as of this encounter Additional Source Comments The information contained in this document represents components of the legal health record. It is not the complete legal health record.[facility]
--- OUTSIDE RECORDS SUMMARY | 2025-01-31 09:26 | XMS_ITS | Encounter Summary ---
Author Organization [facility] Address [address] [facility] [address] [place] [address] Phone Care Team Providers Care Tongue And Groove Machine Setter Name Role Phone Susan Mckeonz HEALTH CARE COORDINATOR Unavailable Shon Bauer MD Unavailable [phone] Yenny Doty BARREL LINER Unavailable Zena Hill DO Unavailable Stacie Vick BARREL LINER Unavailable Soumya Paiz CONTINUOUS PICKLING LINE PICKLER HELPER Unavailable Inna Boyer MD Unavailable Vidhya Casey MD Unavailable Ian Walsh MD Unavailable [phone] Slim Rosario HEALTH CARE COORDINATOR Unavailable Ayaan Bauer MD Unavailable Jacob Landa MD Unavailable [phone] Shon Bauer MD Primary Care Provider Juan Carlos Cano MD Primary Care Provider Juan Carlos Cano MD Primary Care Provider Encounter Details Date Type Department Care Team (Late st Contact Info) Description 12/01/2017 Procedure Pass [facility], Ct Scan - [address] [address] Social History Tobacco Use Types Packs/Day Years [...] st Contact Info) Description 08/27/2024 Procedure Pass [address] [place] [address] 02/26/2025 10:00 AM EST Office Visit [address] [address] Juan Carlos Cano MD [address] [place] [address] 7 [place] [address] 03/04/2025 7:30 AM EST Appointment [address] [place] [address] Juan Carlos Cano MD 234 [facility] 7 [place] [address] 03/15/2025 1:[address] [facility] Medical Infusion Center [address] [place] [address] Momo Lemon MD [address] [place] [address] 05/10/2025 1:30 PM EST Infusion [facility] Infusion Center [address] [place] [address] Momo Lemon MD [address] [place] [address] 07/05/2025 1:30 PM EDT Infusion [facility] Infusion Center 30 [place] [address] Momo Lemon MD 10 [facility] 2 [place] [address] [email or web address] documented as of this encounter Visit Diagnoses Not on filedocumented in this encounter Additional Health Concerns Infection Onset Date Last Indicated Resolved Time CoV-Risk 03/03/2021 03/03/2021 03/13/2021 1:24 AM EST CoV-Exposed Comment:Recent close contact documented in the Travel/Symptom Screening Form 03/25/2023 03/31/2023 04/05/2023 1:[address] documented as of this encounter Care Teams Tongue And Groove Machine Setter Relationship Specialty Start Date End Date Shon Bauer MD [address] [place] [phone] [email or web address] PCP - General 02/15/17 04/18/22 Juan Carlos Cano MD [address] [place] [address] [email or web address] PCP - General Family Medicine 04/19/22 11/11/22 Juan Carlos Cano MD [address] [place] [address] [email or web address] PCP - General Family Medicine 11/12/22 Susan Mckeon CNP [address] [place] [address], 2nd [place] [address] [email or web address] Historical LMR Provider 01/29/17 04/18/21 Shon Bauer MD [address] [place] [address] 7 [place] [phone] [email or web address] Historical LMR Provider 01/29/17 Yenny Doty NP 1 [place] [address] Historical LMR Provider 01/29/17 2 Zena Hill DO [address] [place] [address] 7 [place] [address] [email or web address] Historical LMR Provider 01/29/17 Stacie Vick NP [address] [place] [address] Historical LMR Provider 01/29/17 2 Soumya Paiz FNP [address] [place] [address] [place] [address] Historical LMR Provider 01/29/17 04/18/21 Inna Boyer MD [address] [address] Historical LMR Provider 01/29/17 Vidhya Casey MD [address] [place] [address] 7 [place] [address] Historical LMR Provider 01/29/17 Ian Walsh MD [address] [place] [address] 7 [place] [phone] Historical LMR Provider 01/29/17 2 Slim Rosario CNP 15 [facility], [address] [place] [address] [email or web address] Historical LMR Provider 01/29/17 04/18/21 Ayaan Bauer MD [address] [place], [place] [address] [place] [phone] [email or web address] Historical LMR Provider 01/29/17 Jacob Landa MD [address] [place] [address] Historical LMR Provider 01/29/17 2 documented as of this encounter Additional Source Comments The information contained in this document represents components of the legal health record. It is not the complete legal health record.[facility]
--- OUTSIDE RECORDS SUMMARY | 2025-01-31 09:27 | XMS_ITS | Encounter Summary ---
Author Organization [facility] Address [address] [place] [address] [place] [address] Phone Care Team Providers Care Coil Cutter Name Role Phone Susan Mckeonz BUSINESS PLANNING MANAGER Unavailable Shon Bauer MD Unavailable Yenny Doty M48 M60 ARMOR CREWMAN Unavailable Zena Hill DO Unavailable Stacie Vick M48 M60 ARMOR CREWMAN Unavailable Soumya Paiz BUDGET AND POLICY ANALYST Unavailable Inna Boyer MD Unavailable Vidhya Casey MD Unavailable Ian Walsh MD Unavailable Slim Rosario BUSINESS PLANNING MANAGER Unavailable Ayaan Bauer MD Unavailable Jacob Landa MD Unavailable [phone] Shon Bauer MD Primary Care Provider Juan Carlos Cano MD Primary Care Provider Juan Carlos Cano MD Primary Care Provider [phone] Encounter Details Date Type Department Care Team (Late st Contact Info) Description 12/06/2017 Procedure Pass [facility], [address] [place] [address] Social History Tobacco Use Types Packs/Day Years [...] st Contact Info) Description 08/27/2024 Procedure Pass [address] [place] [address] 02/26/2025 10:00 AM EST Office Visit [address] [address] Juan Carlos Cano MD [address] [place] [address] 7 [place] [address] 03/04/2025 7:30 AM EST Appointment [address] [place] [address] Juan Carlos Cano MD 234 [facility] 7 [place] [address] 03/15/2025 1:30 PM EST Infusion [facility] Infusion Center [address] [place] [address] Momo Lemon MD [address] [place] [address] 05/10/2025 1:30 PM EST Infusion [facility] Infusion Center [address] [place] [address] Momo Lemon MD [address] [place] [address] 07/05/2025 1:30 PM EDT Infusion [facility] Infusion Center 30 [place] [address] Momo Lemon MD [address] [address] [email or web address] documented as of this encounter Visit Diagnoses Not on filedocumented in this encounter Additional Health Concerns Infection Onset Date Last Indicated Resolved Time CoV-Risk 03/03/2021 03/03/2021 03/13/2021 1:24 AM EST CoV-Exposed Comment:Recent close contact documented in the Travel/Symptom Screening Form 03/25/2023 03/31/2023 04/05/2023 1:[address] documented as of this encounter Care Teams Coil Cutter Relationship Specialty Start Date End Date Shon Bauer MD [address] [place] [phone] [email or web address] PCP - General 02/15/17 04/18/22 Juan Carlos Cano MD [address] [place] [address] [email or web address] PCP - General Family Medicine 04/19/22 11/11/22 Juan Carlos Cano MD [address] [place] [address] [email or web address] PCP - General Family Medicine 11/12/22 Susan Mckeon CNP [address] [place] [address], 2nd [place] [address] [email or web address] Historical LMR Provider 01/29/17 04/18/21 Shon Bauer MD [address] [place] [address] 7 [place] [phone] [email or web address] Historical LMR Provider 01/29/17 Yenny Doty M48 M60 ARMOR CREWMAN 1 [place] [address] Historical LMR Provider 01/29/17 2 Zena Hill DO [address] [place] [address] 7 [place] [address] [email or web address] Historical LMR Provider 01/29/17 Stacie Vick NP [address] [place] [address] Historical LMR Provider 01/29/17 2 Soumya Paiz FNP [address] [place] [address] 7 [place] [address] [email or web address] Historical LMR Provider 01/29/17 04/18/21 Inna Boyer MD [address] [place] [address], [address] [place] [address] Historical LMR Provider 01/29/17 Vidhya Casey MD [address] [place] [address] [place] [address] Historical LMR Provider 01/29/17 Ian Walsh MD [address] [place] [address] [place] [phone] Historical LMR Provider 01/29/17 2 Slim Rosario CNP 15 [facility], [address] [place] [address] [email or web address] Historical LMR Provider 01/29/17 04/18/21 Ayaan Bauer MD [address] [place], [place] [address] [place] [phone] [email or web address] Historical LMR Provider 01/29/17 Jacob Landa MD 61 [place] [address] Historical LMR Provider 01/29/17 2 documented as of this encounter Additional Source Comments The information contained in this document represents components of the legal health record. It is not the complete legal health record.[facility]
--- OUTSIDE RECORDS SUMMARY | 2025-01-31 09:27 | XMS_ITS | Encounter Summary ---
Author Organization [facility] Address [address] [place] [address] [place] [address] Phone Care Team Providers Care Bike Assembler Name Role Phone Susan Mckeon CROWN CERAMIST Unavailable Shon Bauer MD Unavailable [phone] Yenny Doty FARMWORKER DAIRY Unavailable Zena Hill DO Unavailable Stacie Vick FARMWORKER DAIRY Unavailable Soumya Paiz PICK UP ATTENDANT Unavailable Inna Boyer MD Unavailable Vidhya Casey MD Unavailable Ian Walsh MD Unavailable [phone] Slim Rosario CROWN CERAMIST Unavailable [phone] Ayaan Bauer MD Unavailable Jacob Landa MD Unavailable [phone] Shon Bauer MD Primary Care Provider Juan Carlos Cano MD Primary Care Provider Juan Carlos Cano MD Primary Care Provider Reason for Referral * MRI/CAT Scan - Closed Specialty Diagnoses / Procedures Referred By Contac t Referred To Contact Radiology Diagnoses Right sided abdominal pain Procedures MRI Enterography Abdomen/Pelvis MRI PELVIS (GI/) Momo Lemon MD Phone: tel: fax: [email or web address] Referral ID Status Reason Start Date Expiration Date Visits Re quested Visits Authorized [id number] Closed 12/14/2017 01/12/2018 1 1 Encounter Details Date Type Department Care Team (Late Contact Info) Description 12/15/2017 Ancillary Orders Virtual Department [address] [place] [address] Momo Lemon MD [address] [place] [address] [email or web address] Right sided abdominal pain Social History Tobacco Use Types Packs/Day Years [...] (Late Contact Info) Description 08/27/2024 Procedure Pass [address] [place] [address] 02/26/2025 10:00 AM EST Office Visit [facility] Medicine [address] [place] [address] Juan Carlos Cano MD 234 [facility], [address] [place] [address] [email or web address] 03/04/2025 7:30 AM EST Appointment [address] [place] [address] Juan Carlos Cano MD [address] [place] [address], [address] [place] [address] 03/15/2025 1:30 PM EST Infusion [facility] Infusion [address] [address] Momo Lemon MD [address] [place] [address] 05/10/2025 1:30 PM EST Infusion [facility] Infusion [address] [address] Momo Lemon MD [address] [place] [address] 07/05/2025 1:30 PM EDT Infusion [address] [address] Momo Lemon MD [address] [place] [address] documented as of this encounter Results * MRI ENTEROGRAPHY ABDOMEN AND PELVIS WITH AND WITHOUT CONTRAST (01/04/2018 11:00 AM EDT) Anatomical Region Laterality Modality Pelvis Magnetic Resonan ce 01/04/2018 12:0 9 PM EDT Impressions 01/04/2018 12:32 PM EDT No MR evidence of Crohn's disease. Postsurgical changes in the cecal region and post partial colectomy with colostomy in the left upper quadrant. POS [id number] Narrative 01/04/2018 12:32 PM EDT EXAM: MRI ENTEROGRAPHY ABDOMEN AND PELVIS WITHOUT AND WITH INTRAVENOUS CONTRAST COMPARISON: Prior abdominal CT from November 30, 2017 TECHNIQUE: Multiplanar MRI of the abdomen and pelvis was performed per the standard MR enterography protocol. Oral contrast was administered prior to this exam. Exam was performed prior to and after the administration of 16.5 cc gadolinium Dotarem IV contrast. FINDINGS: Physiologic bowel peristalsis partially limits evaluation. STOMACH/GI TRACT: Patient is status post partial colectomy with colostomy in the left upper quadrant. Postsurgical sutures in the cecal region were better appreciated on the prior CT study. No evidence of bowel obstruction. There is no abnormal small bowel wall thickening, stricture or enhancement. This exam was not performed for the evaluation of the large bowel, however, there is no gross abnormality to the level of colostomy (except for the post surgical changes described above). Descending colon, sigmoid and rectum are decompressed. There is no gross abnormality in the perianal region. OTHERS: Redemonstration of known left adrenal lesion. Limited evaluation of the liver, kidneys, spleen, pancreas, and right adrenal gland demonstrates no gross abnormality. PELVIS: Urinary bladder is well distended and appears grossly unremarkable. The uterus and bilateral ovaries have physiologic appearance. PERITONEUM AND RETROPERITONEUM: No free fluid or organized fluid collections. LYMPH NODES: No adenopathy. VESSELS: Abdominal aorta and iliac arteries and inferior vena cava are unremarkable. BONES AND SOFT TISSUES: Limited evaluation of the osseous structures demonstrates no suspicious abnormality. Colostomy in the left upper quadrant. Procedure Note Jalen Ybarra MD - 01/04/2018 EXAM: MRI ENTEROGRAPHY ABDOMEN AND PELVIS WITHOUT AND WITH INTRAVENOUSCONTRAST COMPARISON: Prior abdominal CT from November 30, 2017 TECHNIQUE: Multiplanar MRI of the abdomen and pelvis was performed per [place] enterography protocol. Oral contrast was administered prior tothis exam. Exam was performed prior to and after the administration of16.5 cc gadolinium Dotarem IV contrast. FINDINGS: Physiologic bowel peristalsis partially limits evaluation. STOMACH/GI TRACT: Patient is status post partial colectomy with colostomyin the left upper quadrant. Postsurgical sutures in the cecal region werebetter appreciated on the prior CT study. No evidence of bowelobstruction. There is no abnormal small bowel wall thickening, strictureor enhancement. This exam was not performed for the evaluation of the large bowel,however, there is no gross abnormality to the level of colostomy (exceptfor the post surgical changes described above). Descending colon, sigmoidand rectum are decompressed. There is no gross abnormality in the perianalregion. OTHERS: Redemonstration of known left adrenal lesion. Limited evaluationof the liver, kidneys, spleen, pancreas, and right adrenal glanddemonstrates no gross abnormality. PELVIS: Urinary bladder is well distended and appears grosslyunremarkable. The uterus and bilateral ovaries have physiologicappearance. PERITONEUM AND RETROPERITONEUM: No free fluid or organized fluidcollections. LYMPH NODES: No adenopathy. VESSELS: Abdominal aorta and iliac arteries and inferior vena cava areunremarkable. BONES AND SOFT TISSUES: Limited evaluation of the osseous structuresdemonstrates no suspicious abnormality. Colostomy in the left upperquadrant. IMPRESSION: No MR evidence of Crohn's disease. Postsurgical changes in the cecalregion and post partial colectomy with colostomy in the left upperquadrant. POS [id number] Momo Lemon MD IMG MR ABDOMEN Final Result documented in this encounter Visit Diagnoses Diagnosis Right sided abdominal pain Abdominal pain, unspecified site Right sided abdominal pain Abdominal pain, unspecified site documented in this encounter Additional Health Concerns Infection Onset Date Last Indicated Resolved Time CoV-Risk 03/03/2021 03/03/2021 03/13/2021 1:24 AM EST CoV-Exposed Comment:Recent close contact documented in the Travel/Symptom Screening Form 03/25/2023 03/31/2023 04/05/2023 1:[address] documented as of this encounter Care Teams Bike Assembler Relationship Specialty Start Date End Date Shon Bauer MD [address] [place] [address] [place] [phone] [email or web address] PCP - General 02/15/17 04/18/22 Juan Carlos Cano MD [address] [place] [address] [place] [address] [email or web address] PCP - General Family Medicine 04/19/22 11/11/22 Juan Carlos Cano MD [address] [place] [address] [place] [address] [email or web address] PCP - General Family Medicine 11/12/22 Susan Mckeon, WINDY [address] [address] [email or web address] Historical LMR Provider 01/29/17 04/18/21 Shon Bauer MD [address] [place] [address] 7 [place] [phone] [email or web address] Historical LMR Provider 01/29/17 Yenny Doty NP 1 [place] [address] Historical LMR Provider 01/29/17 2 Zena Hill DO [address] [place] [address] 7 [place] [address] [email or web address] Historical LMR Provider 01/29/17 Stacie Vick NP [address] [place] [address] Historical LMR Provider 01/29/17 2 Soumya Paiz FNP [address] [place] [address] 7 [place] [address] [email or web address] Historical LMR Provider 01/29/17 04/18/21 Inna Boyer MD [address] [address] Historical LMR Provider 01/29/17 Vidhya Casey MD 234 [facility] [address] [place], [place] [phone] Historical LMR Provider 01/29/17 Ian Walsh MD [address] [place] [address] 7 [place] [phone] Historical LMR Provider 01/29/17 2 Slim Rosario CNP 15 [facility], [address] [place] [address] [email or web address] Historical LMR Provider 01/29/17 04/18/21 Ayaan Bauer MD [address] [place] [address] [address] [place] [phone] [email or web address] Historical LMR Provider 01/29/17 Jacob Landa MD [address] [place] [address] Historical LMR Provider 01/29/17 2 documented as of this encounter Additional Source Comments The information contained in this document represents components of the legal health record. It is not the complete legal health record.[facility]
--- OUTSIDE RECORDS SUMMARY | 2025-01-31 09:27 | XMS_ITS | Encounter Summary ---
Author Organization [facility] Address [address] [facility] [address] [place] [address] Phone Care Team Providers Care Granular Operator Name Role Phone Shon Bauer MD Unavailable Zena Hill DO Unavailable [phone] Vidhya Casey MD Unavailable [phone] Ayaan Bauer MD Unavailable [phone] Juan Carlos Cano MD Primary Care Provider [phone] Encounter Details Date Type Department Care Team (Late st Contact Info) Description 04/09/2024 Telephone [facility] [address] [place] [address] Juan Carlos Cano MD [address] [place] [address], [address] [place], [place] [phone] [email or web address] Social History Tobacco Use Types Packs/Day Years [...] Upcoming Encounters Date Type Department Care Team (Bakari st Contact Info) Description 08/27/2024 Procedure Pass [facility] - [address] [place] [address] 02/26/2025 10:00 AM EST Office Visit [facility] [address] [place] [address] Juan Carlos Cano MD 234 [facility], [address] [place] [address] 03/04/2025 7:30 AM EST Appointment [address] [place] [address] Juan Carlos Cano MD 234 [facility], [facility] [place] 7 [place] [address] 03/15/2025 1:30 PM EST Infusion [facility] Infusion [address] [address] Momo Lemon MD [address] [place] [address] 05/10/2025 1:30 PM EST Infusion [facility] Infusion [address] [address] Momo Lemon MD [address] [place] [address] 07/05/2025 1:30 PM EDT Infusion [facility] Infusion [address] [address] Momo Lemon MD [address] [address] documented as of this encounter Visit Diagnoses Not on filedocumented in this encounter Additional Health Concerns Assessment Noted Time PHQ-9 Depression Total Score: 18 024 10:04 AM EDT PHQ-2 Depression Total Score: 6 01/27/20 24 10:04 AM EDT documented as of this encounter Care Teams Granular Operator Relationship Specialty Start Date End Date Juan Carlos Cano MD 234 [facility], [address] [place] [address] [email or web address] PCP - General Family Medicine 11/12/22 Shon Bauer MD [address] [place] [address] [address] [place] [phone] [email or web address] Historical LMR Provider 01/29/17 Zena Hill DO [address] [place] [address] 7 [place] [address] [email or web address] Historical LMR Provider 01/29/17 Vidhya [place] MD [address] [place] [address] 7 [place] [address] [email or web address] Historical LMR Provider 01/29/17 Ayaan Bauer MD [address] [place] [address] [address] [place] [phone] [email or web address] Historical LMR Provider 01/29/17 documented as of this encounter Additional Source Comments The information contained in this document represents components of the legal health record. It is not the complete legal health record.[facility]
--- OUTSIDE RECORDS SUMMARY | 2025-01-31 09:28 | XMS_ITS | Encounter Summary ---
Author Organization [facility] Address [address] [facility] [address] [place] [address] Phone Care Team Providers Care Uniform Designer Name Role Phone Susan Mckeonz REPAIRER SHOE STICKS Unavailable Shon Bauer MD Unavailable Yenny Doty GAS PLANT REPAIRER Unavailable Zena Hill DO Unavailable Stacie Vick GAS PLANT REPAIRER Unavailable Soumya Paiz SACK SORTER Unavailable Inna Boyer MD Unavailable Vidhya Casey MD Unavailable Ian Walsh MD Unavailable Slim Rosario REPAIRER SHOE STICKS Unavailable Ayaan Bauer MD Unavailable Jacob Landa MD Unavailable [phone] Shon Bauer MD Primary Care Provider Juan Carlos Cano MD Primary Care Provider [phone] Juan Carlos Cano MD Primary Care Provider [phone] Encounter Details Date Type Department Care Team (Late st Contact Info) Description 12/15/2017 Procedure Pass [facility], [address] [address] Social History Tobacco Use Types Packs/Day Years [...] st Contact Info) Description 08/27/2024 Procedure Pass [address] [place] [address] 02/26/2025 10:00 AM EST Office Visit [address] [address] Juan Carlos Cano MD [address] [place] [address] 7 [place] [address] 03/04/2025 7:30 AM EST Appointment [address] [place] [address] Juan Carlos Cano MD 234 [facility] 7 [place] [address] 03/15/2025 1:30 PM EST Infusion [facility] Infusion Center [address] [place] [address] Momo Lemon MD [address] [place] [address] 05/10/2025 1:30 PM EST Infusion [facility] Infusion Center [address] [place] [address] Momo Lemon MD [address] [place] [address] 07/05/2025 1:30 PM EDT Infusion [facility] Infusion Center 30 [place] [address] Momo Lemon MD [address] [address] [email or web address] documented as of this encounter Visit Diagnoses Not on filedocumented in this encounter Additional Health Concerns Infection Onset Date Last Indicated Resolved Time CoV-Risk 03/03/2021 03/03/2021 03/13/2021 1:24 AM EST CoV-Exposed Comment:Recent close contact documented in the Travel/Symptom Screening Form 03/25/2023 03/31/2023 04/05/2023 1:[address] documented as of this encounter Care Teams Uniform Designer Relationship Specialty Start Date End Date Shon Bauer MD [address] [place] [phone] [email or web address] PCP - General 02/15/17 04/18/22 Juan Carlos Cano MD [address] [place] [address] [email or web address] PCP - General Family Medicine 04/19/22 11/11/22 Juan Carlos Cano MD [address] [place] [address] [email or web address] PCP - General Family Medicine 11/12/22 Susan Mckeon CNP [address] [place] [address], 2nd [place] [address] [email or web address] Historical LMR Provider 01/29/17 04/18/21 Shon Bauer MD [address] [place] [address] 7 [place] [phone] [email or web address] Historical LMR Provider 01/29/17 Yenny Doty NP 1 [place] [address] Historical LMR Provider 01/29/17 2 Zena Hill DO [address] [place] [address] 7 [place] [address] [email or web address] Historical LMR Provider 01/29/17 Stacie Vick NP [address] [place] [address] Historical LMR Provider 01/29/17 2 Soumya Paiz FNP [address] [place] [address] 7 [place] [address] Historical LMR Provider 01/29/17 04/18/21 Inna Boyer MD [address] [place] [address], [address] [place] [address] Historical LMR Provider 01/29/17 Vidhya Casey MD [address] [place] [address] 7 [place] [address] Historical LMR Provider 01/29/17 Ian Walsh MD [address] [place] [address] 7 [place] [phone] Historical LMR Provider 01/29/17 2 Slim Rosario CNP 15 [facility], [address] [place] [address] [email or web address] Historical LMR Provider 01/29/17 04/18/21 Ayaan Bauer MD [address] [place], [place] [address] [place] [phone] [email or web address] Historical LMR Provider 01/29/17 Jacob Landa MD [address] [place] [address] Historical LMR Provider 01/29/17 2 documented as of this encounter Additional Source Comments The information contained in this document represents components of the legal health record. It is not the complete legal health record.[facility]
--- OUTSIDE RECORDS SUMMARY | 2025-01-31 09:29 | XMS_ITS | Encounter Summary ---
Author Organization [facility] Address [address] [facility] [address] [place] [address] Phone Care Team Providers Care Metal Wire Technician Name Role Phone Susan Mckeonz SUPPLIER SPECIALIST Unavailable Shon Bauer MD Unavailable Yenny Doty BUSINESS OFFICE ASSISTANT Unavailable Zena Hill DO Unavailable Stacie Vick BUSINESS OFFICE ASSISTANT Unavailable Soumya Paiz HUMID SYSTEM OPERATOR Unavailable Inna Boyer MD Unavailable Vidhya Casey MD Unavailable Ian Walsh MD Unavailable Slim Rosario SUPPLIER SPECIALIST Unavailable Ayaan Bauer MD Unavailable Jacob Landa MD Unavailable [phone] Shon Bauer MD Primary Care Provider Juan Carlos Cano MD Primary Care Provider [phone] Juan Carlos Cano MD Primary Care Provider [phone] Encounter Details Date Type Department Care Team (Late st Contact Info) Description 05/26/2020 Procedure Pass [address] [address] Social History Tobacco Use Types Packs/Day Years Used Date Smoking Tobacco: Every Day Cigarettes Smokeless Tobacco: Never Comments:<half a pack Alcohol Use Standard Drinks/Week Comments Not Currently 0 (1 standard drink = 0.6 oz pur e alcohol) Comments No Sex and Gender Information Value Date Recorded Sex Assigned at Female 07/04/2021 9:02 PM EDT Legal Sex Female 8:11 PM EST Gender Identity Female 07/04/2021 9:02 PM EDT Sexual Orientation Not on file documented as of this encounter Plan of Treatment Upcoming Encounters Date Type Department Care Team (Late st Contact Info) Description 08/27/2024 Procedure Pass [address] [place] [address] 02/26/2025 10:00 AM EST Office Visit [address] [address] Juan Carlos Cano MD [address] [place] [address] 7 [place] [address] 03/04/2025 7:30 AM EST Appointment [address] [place] [address] Juan Carlos Cano MD 234 [facility] 7 [place] [address] 03/15/2025 1:30 PM EST Infusion [facility] Medical Infusion Center [address] [place] [address] Momo Lemon MD [address] [place] [address] 05/10/2025 1:30 PM EST Infusion [facility] Infusion Center [address] [place] [address] Momo Lemon MD [address] [place] [address] 07/05/2025 1:30 PM EDT Infusion [facility] Infusion Center 30 [place] [address] Momo Lemon MD 10 [facility] 2 [place] [address] [email or web address] documented as of this encounter Visit Diagnoses Not on filedocumented in this encounter Additional Health Concerns Infection Onset Date Last Indicated Resolved Time CoV-Risk 03/03/2021 03/03/2021 03/13/2021 1:24 AM EST CoV-Exposed Comment:Recent close contact documented in the Travel/Symptom Screening Form 03/25/2023 03/31/2023 04/05/2023 1:[address] documented as of this encounter Care Teams Metal Wire Technician Relationship Specialty Start Date End Date Shon Bauer MD [address] [place] [phone] [email or web address] PCP - General 02/15/17 04/18/22 Juan Carlos Cano MD [address] [place] [address] [email or web address] PCP - General Family Medicine 04/19/22 11/11/22 Juan Carlos Cano MD [address] [place] [address] [email or web address] PCP - General Family Medicine 11/12/22 Susan Mckeon, WINDY [address] [place] [address], 2[address] [place] [address] [email or web address] Historical LMR Provider 01/29/17 04/18/21 Shon Bauer MD [address] [place] [address] 7 [place] [address] [email or web address] Historical LMR Provider 01/29/17 Yenny Doty NP 1 [place] [address] Historical LMR Provider 01/29/17 2 Zena Hill DO [address] [place] [address] 7 [place] [address] [email or web address] Historical LMR Provider 01/29/17 Stacie Vick NP [address] [place] [address] Historical LMR Provider 01/29/17 2 Soumya Paiz FNP [address] [place], [place] [address] [place] [address] Historical LMR Provider 01/29/17 04/18/21 Inna Boyer MD [address] [address] Historical LMR Provider 01/29/17 Vidhya Casey MD [address] [place] [address] 7 [place] [address] Historical LMR Provider 01/29/17 Ian Walsh MD [address] [place] [address] 7 [place] [address] Historical LMR Provider 01/29/17 2 Slim Rosario CNP 15 [facility], [address] [place] [address] [email or web address] Historical LMR Provider 01/29/17 04/18/21 Ayaan Bauer MD [address] [place], [place] [address] [place] [address] [email or web address] Historical LMR Provider 01/29/17 Jacob Landa MD [address] [place] [address] Historical LMR Provider 01/29/17 2 documented as of this encounter Additional Source Comments The information contained in this document represents components of the legal health record. It is not the complete legal health record.[facility]
--- OUTSIDE RECORDS SUMMARY | 2025-01-31 09:29 | XMS_ITS | Encounter Summary ---
Author Organization [facility] Address [address] [place] [address] Phone Care Team Providers Care Plaster Patternmaker Name Role Phone Shon Bauer MD Unavailable [phone] Zena Hill DO Unavailable [phone] Vidhya Casey MD Unavailable [phone] Ayaan Bauer MD Unavailable [phone] Juan Carlos Cano MD Primary Care Provider Juan Carlos Cano MD Primary Care Provider [phone] Encounter Details Date Type Department Care Team (Late st Contact Info) Description 07/27/2022 Procedure Pass [facility], [address] [address] Social History Tobacco Use Types Packs/Day Years [...] high school, GED, job training, learning the Syriac language, technical skills, or developing parenting skills)? [...] st Contact Info) Description 08/27/2024 Procedure Pass [address] [place] [address] 02/26/2025 10:00 AM EST Office Visit [facility] [address] [place] [address] Juan Carlos Cano MD [address] [address] 03/04/2025 7:30 AM EST Appointment [address] [place] [address] Juan Carlos Cano MD 234 [facility], [facility] 7 [place] [address] 03/15/2025 1:30 PM EST Infusion [facility] [address] [place] [address] Momo Lemon MD [address] [place] [address] [email or web address] 05/10/2025 1:30 PM EST Infusion [facility] [address] [address] Momo Lemon MD [address] [address] [email or web address] 07/05/2025 1:30 PM EDT Infusion [facility]fusion [address] [address] Momo Lemon MD [address] [address] [email or web address] documented as of this encounter Visit Diagnoses Not on filedocumented in this encounter Additional Health Concerns Infection Onset Date Last Indicated Resolved Time CoV-Exposed Comment:Recent close contact documented in the Travel/Symptom Screening Form 03/25/2023 03/31/2023 04/05/2023 1:[address] Assessment Noted Time PHQ-2 Depression Total Score: 1 07/28/19 8:52 AM EDT documented as of this encounter Care Teams Plaster Patternmaker Relationship Specialty Start Date End Date Juan Carlos Cano MD [address] [place] [address] 7 [place] [address] [email or web address] PCP - General Family Medicine 04/19/22 11/11/22 Juan Carlos Cano MD [address] [place] [address] 7 [place] [address] [email or web address] PCP - General Family Medicine 11/12/22 Shon Bauer MD [address] [place] [address] 7 [place] [address] [email or web address] Historical LMR Provider 01/29/17 Zena Hill DO 234 [facility], [address] [place] [address] [email or web address] Historical LMR Provider 01/29/17 Vidhya Casey MD 234 [facility] [address] [place] [address] [email or web address] Historical LMR Provider 01/29/17 Ayaan Bauer MD 234 [facility] [address] [place] [address] [email or web address] Historical LMR Provider 01/29/17 documented as of this encounter Additional Source Comments The information contained in this document represents components of the legal health record. It is not the complete legal health record.[facility]
--- OUTSIDE RECORDS SUMMARY | 2025-01-31 09:29 | XMS_ITS | Encounter Summary ---
Author Organization [facility] Address [address] [place] [address] [place] [address] Phone Care Team Providers Care Explosive Operator Fuse Name Role Phone Susan Mckeon UNDERWRITING INTERNSHIP Unavailable Shon Bauer MD Unavailable Yenny Doty PHONOGRAPH CARTRIDGE ASSEMBLER Unavailable Zena Hill DO Unavailable Stacie Vick PHONOGRAPH CARTRIDGE ASSEMBLER Unavailable Soumya Paiz VINEYARD TENDER Unavailable Inna Boyer MD Unavailable Vidhya Casey MD Unavailable Ian Walsh MD Unavailable Slim Rosario UNDERWRITING INTERNSHIP Unavailable Ayaan Bauer MD Unavailable Jacob Landa MD Unavailable [phone] Shon Bauer MD Primary Care Provider Juan Carlos Cano MD Primary Care Provider Juan Carlos Cano MD Primary Care Provider Encounter Details Date Type Department Care Team (Late st Contact Info) Description 06/04/2020 Transcribe Orders [facility] Department [address] [place] [address] Momo Lemon MD [address] [address] [email or web address] Social History Tobacco Use Types Packs/Day Years [...] st Contact Info) Description 08/27/2024 Procedure Pass [address] [place] [address] 02/26/2025 10:00 AM EST Office Visit [address] [address] Juan Carlos Cano MD [address] [place] [address] 7 [place] [address] [email or web address] 03/04/2025 7:30 AM EST Appointment [address] [place] [address] Juan Carlos Cano MD [address] [place] [address] 7 [place] [address] 03/15/2025 1:30 PM EST Infusion [facility] Medical Infusion Center [address] [place] [address] Momo Lemon MD [address] [place] [address] 05/10/2025 1:30 PM EST Infusion [facility] Medical Infusion Center 30 [place] [address] Momo Lemon MD 10 [facility] 2 [place] [address] [email or web address] 07/05/2025 1:30 PM EDT Infusion [facility] Infusion Center [address] [place] [address] Momo Lemon MD 10 [facility] 2 [place] [address] [email or web address] documented as of this encounter Visit Diagnoses Not on filedocumented in this encounter Additional Health Concerns Infection Onset Date Last Indicated Resolved Time CoV-Risk 03/03/2021 03/03/2021 03/13/2021 1:24 AM EST CoV-Exposed Comment:Recent close contact documented in the Travel/Symptom Screening Form 03/25/2023 03/31/2023 04/05/2023 1:[address] documented as of this encounter Care Teams Explosive Operator Fuse Relationship Specialty Start Date End Date Shon Bauer MD [address] [place] [address] [place] [address] [email or web address] PCP - General 02/15/17 04/18/22 Juan Carlos Cano MD [address] [place] [address] 7 [place] [address] [email or web address] PCP - General Family Medicine 04/19/22 11/11/22 Juan Carlos Cano MD [address] [place] [address] 7 [place] [address] [email or web address] PCP - General Family Medicine 11/12/22 Susan Mckeon, WINDY 15 [facility], [address] [place] [address] Historical LMR Provider 01/29/17 04/18/21 Shon Bauer MD [address] [place] [address] 7 [place] [address] [email or web address] Historical LMR Provider 01/29/17 Yenny Doty NP 1 [place] [address] Historical LMR Provider 01/29/17 2 Zena Hill DO [address] [place] [address] 7 [place] [address] Historical LMR Provider 01/29/17 Stacie Vick NP [address] [place] [address] Historical LMR Provider 01/29/17 2 Soumya Paiz FNP [address] [place] [address] 7 [place] [address] Historical LMR Provider 01/29/17 04/18/21 Inna Boyer MD 15 [facility], 2nd [place] [address] Historical LMR Provider 01/29/17 Vidhya Casey MD [address] [place] [address] 7 [place] [address] [email or web address] Historical LMR Provider 01/29/17 Ian Walsh MD 236 [facility] [address] [place] [address] Historical LMR Provider 01/29/17 2 Slim Rosario CNP 15 [facility], [address] [place] [address] [email or web address] Historical LMR Provider 01/29/17 04/18/21 Ayaan Bauer MD 234 [facility]7 [place] [id number] [email or web address] Historical LMR Provider 01/29/17 Jacob Landa MD 61 [place] [address] Historical LMR Provider 01/29/17 2 documented as of this encounter Additional Source Comments The information contained in this document represents components of the legal health record. It is not the complete legal health record.[facility]
== END 2025-01-31 09:38 | disposition home or self-care (01) ==
LOC: HO.PMC 08:44
PROVIDERS: PCP Family Medicine; Referring Provider Family Medicine; Visit Provider Nurse Practitioner Family
DX: M25.551 Pain in right hip (principal); M25.552 Pain in left hip; M54.50 Low back pain, unspecified; G89.29 Other chronic pain; M47.817 Spondylosis without myelopathy or radiculopathy, lumbosacral region; M25.511 Pain in right shoulder; M16.11 Unilateral primary osteoarthritis, right hip
CPT/HCPCS: 99204

== ENCOUNTER → 2025-01-31 09:53 | Outpatient (BNV) | payer OTHER, SELFPAY | PROVIDERS: PCP Family Medicine; Referring Provider Family Medicine; Visit Provider Radiology Diagnostic Radiology | DX: M54.50 Low back pain, unspecified (principal); M25.551 Pain in right hip; M25.511 Pain in right shoulder | CPT/HCPCS: 72110; 73030; 73521 ==